=== PATIENT | female | born 1975 | race Caucasian/White ===

== ENCOUNTER 2018-04-07 14:12 | Inpatient (IN) | payer OTHER ==
[~2018-04-07 14:12] MED LIST: PIPERACILLIN/TAZOB 3.375 GM 3.375 GM in DEXTROSE 5%-WATER - 50 ML IVPB ONE
--- NOTE | 2018-04-07 14:49 | PDOC ---
Attending Attestation - Resident Resident Name: TitaPranav - HPI HPI: 04/09/18 09:40 Pt presents to the Ed complaining of fever, drainage from abdominal wounds and worsening swelling after abdominoplasty procedure performed in [place]. Pain and swelling has been worsening since her discharge from the hospital, but has become increasingly worse over the last two days. Also complaining of serosanguinous drainage from her wounds that has become so copious that she needed to use sanitary napkins to control the flow. Reports fever at home for the last two days. - Physicial Exam PE: 04/09/18 10:03 Agree with resident exam. Patinet has diffusely tender and swollen abdominal wall with crepitus. + two eschars on the R lateral abdominal wall. - Medical Decision Making 04/09/18 10:04 Pt presents to the ED complaining of severe pain and swelling and fever after abdominoplasty. Patient is febrile and has signs of extensive abdominal wall infection. Will start broad spectrum antibiotics and check CT abdomen to evaluate for abscess. Will admit for IV antibiotics and likely surgical intervention.
[2018-04-07] MEDS ORDERED: PIPERACILLIN/TAZOB 3.375 GM 3.375 GM in DEXTROSE 5%-WATER - 50 ML IVPB ONE (14:58)
[2018-04-07] MEDS ORDERED: VANCOMYCIN 1,000 MG in DEXTROSE 5%-WATER - 250 ML IVPB ONE (14:58)
[2018-04-07] MEDS ORDERED: SODIUM CHLORIDE 2,000 ML IV STA (14:59)
[2018-04-07] MEDS ORDERED: morphine CARPU-JECT 4 MG/1 ML DISP.SYRIN IVPUSH ONE (15:01)
[2018-04-07] MEDS ORDERED: morphine SULFATE 4 MG/ML VIAL ONE (15:18)
[2018-04-07] MEDS ORDERED: PIPERACILLIN/TAZOB 3.375 GM 3.375 GM/50 ML BAG IVPB ONE (15:18)
[2018-04-07] MEDS ORDERED: VANCOMYCIN 1 GRAM (PRE-DOCKED) 1,000 MG/250 ML BAG IVPB ONE (15:18)
[2018-04-07] MEDS ORDERED: ACETAMINOPHEN 1000 MG/100 ML VIAL (NON FORMULARY) IVPB ONE (15:29)
[2018-04-07] MEDS ORDERED: ACETAMINOPHEN INJECTION 100 ML IVPB ONE (15:31)
[2018-04-07 15:41] LABS: BASO % 0.4 % (0-2.0); EOS % 3.7 % (0-4.5); HEMATOCRIT 31.7 % (32.4-45.2); HEMOGLOBIN 10.1 GM/dL (10.7-15.3); LYMPH % 24.4 % (8-40); MCH 25.3 pg (25.7-33.7); MCHC 31.8 g/dl (32.0-36.0); MEAN CELL VOLUME 79.5 fl (80-96); MEAN PLT VOLUME 7.2 fl (7.5-11.1); MONO % 14.2 % (3.8-10.2); NEUT % 57.3 % (42.8-82.8); PLATELET COUNT 661 K/MM3 (134-434); RBC 3.99 M/mm3 (3.60-5.2); RDW 16.5 % (11.6-15.6); WHITE BLOOD COUNT 9.7 K/mm3 (4.0-10.0)
--- NOTE | 2018-04-07 15:45 | PDOC ---
History of Present Illness <Chao Soto - Last Filed: 04/07/18 21:17> - General History Source: Patient Exam Limitations: No Limitations - History of Present Illness Initial Comments: 04/07/18 15:26 Patient is a 42F with history of HTN and abdominoplasty (done in [place] on 03/11/18 ) here today complaining of fever, chills, wound discharge for the past two days. Patient reports taking paracetamol 1g three times a day for pain and fever. Endorses nausea, denies vomiting. Denies dysuria. Patient states that the pain has present since the operation, but the odorous discharge is two days old. <Pranav Rivers - Last Filed: 04/07/18 23:48> - General Chief Complaint: Wound Stated Complaint: POST OP, WOUND Time Seen by Provider: 04/07/18 14:39 Past History <Chao Soto - Last Filed: 04/07/18 21:17> - Past Medical History Anemia: No Asthma: No Cancer: No Cardiac Disorders: Yes (OR) CVA: No COPD: No Dementia: No Diabetes: No Dialysis: No GI Disorders: No Disorders: No HTN: Yes Hypercholesterolemia: No Kidney Stones: No Liver Disease: No Seizures: No Thyroid Disease: No - Surgical History Appendectomy: Yes (20 yrs) Cardiac Surgery: No Cholecystectomy: No Lung Surgery: No Neurologic Surgery: No - Immunization History Immunization Up to Date: Yes - Suicide/Smoking/Psychosocial Hx Smoking Status: No Smoking History: Never smoked Number of Cigarettes Smoked Daily: 0 Hx Alcohol Use: No Drug/Substance Use Hx: No Substance Use Type: None Hx Substance Use Treatment: No <Pranav Rivers - Last Filed: 04/07/18 23:48> - Past Medical History Allergies/Adverse Reactions: Allergies Allergy/AdvReac Type Severity Reaction Status Date / Time No Known Allergies Allergy Verified 04/07/18 14:28 Home Medications: Ambulatory Orders Labetalol HCl 100 mg PO BID 04/07/18 Review of Systems - Review of Systems Comments:: 04/07/18 15:49 GENERAL/CONSTITUTIONAL: +fever +chills. No weakness. HEAD, EYES, EARS, NOSE AND THROAT: No change in vision. No sore throat. CARDIOVASCULAR: No chest pain or shortness of breath RESPIRATORY: No cough, wheezing, or hemoptysis. GASTROINTESTINAL: +nausea, no vomiting, diarrhea or constipation. GENITOURINARY: No dysuria, frequency, or change in urination. MUSCULOSKELETAL: No joint or muscle swelling or pain. No neck or back pain. SKIN: No rash NEUROLOGIC: No headache, vertigo, loss of consciousness, or change in strength/ sensation. ENDOCRINE: No increased thirst. No abnormal weight change HEMATOLOGIC/LYMPHATIC: No anemia, easy bleeding, or history of blood clots. ALLERGIC/IMMUNOLOGIC: No hives or skin allergy. <Pranav Rivers - Last Filed: 04/07/18 23:48> *Physical Exam - Vital Signs Last Vital Signs Temp Pulse Resp BP Pulse Ox 101.7 F H 97 H 18 137/69 99 04/07/18 18:45 04/07/18 18:45 04/07/18 18:45 04/07/18 18:45 04/07/18 18:45 <Chao Soto - Last Filed: 04/07/18 21:17> - Vital Signs Last Vital Signs Temp Pulse Resp BP Pulse Ox 99.1 F 111 H 19 143/78 100 04/07/18 14:28 04/07/18 14:28 04/07/18 14:28 04/07/18 14:28 04/07/18 14:28 - Physical Exam Comments: 04/07/18 15:50 GENERAL: Awake, alert, and fully oriented, in no acute distress HEAD: No signs of trauma, normocephalic, atraumatic EYES: PERRLA, EOMI, sclera anicteric, conjunctiva clear ENT: Auricles normal inspection, hearing grossly normal, nares patent, oropharynx clear without exudates. Moist mucosa NECK: Normal ROM, supple, no lymphadenopathy, JVD, or masses LUNGS: No distress, speaks full sentences, clear to auscultation bilaterally HEART: Regular rate and rhythm, normal S1 and S2, no murmurs, rubs or gallops, peripheral pulses normal and equal bilaterally. ABDOMEN: Tense, crepitus, odorous discharge with skin breakdown, erythematous EXTREMITIES: Normal inspection, Normal range of motion, no edema. No clubbing or cyanosis. NEUROLOGICAL: Cranial nerves II through XII grossly intact. Normal speech, no focal sensorimotor deficits SKIN: Warm, Dry, normal turgor, no rashes or lesions noted. <Pranav Rivers - Last Filed: 04/07/18 23:48> ED Treatment Course - LABORATORY CBC & Chemistry Diagram: 04/07/18 15:10 04/07/18 15:10 - ADDITIONAL ORDERS Additional order review: Laboratory Results 04/07/18 04/07/18 04/07/18 15:45 15:10 15:10 PT with INR INR PTT (Actin FS) Sodium Potassium Chloride Carbon Dioxide Anion Gap BUN Creatinine Creat Clearance w eGFR Random Glucose Lactic Acid Calcium Total Bilirubin AST ALT Alkaline Phosphatase Troponin I < 0.02 Total Protein Albumin Serum , Qual Negative Urine Color Yellow Urine Appearance Clear Urine pH 6.0 Ur Specific [place] 1.018 Urine Protein Negative Urine Glucose (UA) Negative Urine Ketones Negative Urine Blood Negative Urine Nitrite Negative Urine Bilirubin Negative Urine Urobilinogen Negative Ur Leukocyte Esterase Trace Urine WBC (Auto) 3 Urine RBC (Auto) <1 Urine Mucus Rare 04/07/18 04/07/18 04/07/18 15:10 15:10 15:10 PT with INR 15.40 H INR 1.36 H PTT (Actin FS) 26.8 Sodium 136 Potassium 4.3 Chloride 101 Carbon Dioxide 29 Anion Gap 6 L BUN 10 Creatinine 0.6 Creat Clearance w eGFR > 60 Random Glucose 85 Lactic Acid 0.9 Calcium 8.9 Total Bilirubin 0.5 AST 18 ALT 29 Alkaline Phosphatase 102 Troponin I Total Protein 7.7 Albumin 3.3 L Serum , Qual Urine Color Urine Appearance Urine pH Ur Specific [place] Urine Protein Urine Glucose (UA) Urine Ketones Urine Blood Urine Nitrite Urine Bilirubin Urine Urobilinogen Ur Leukocyte Esterase Urine WBC (Auto) Urine RBC (Auto) Urine Mucus 04/07/18 15:10 RBC 3.99 MCV 79.5 L MCHC 31.8 L RDW 16.5 H MPV 7.2 L D Neutrophils % 57.3 Lymphocytes % 24.4 D Monocytes % 14.2 H D Eosinophils % 3.7 Basophils % 0.4 - Medications Given in the ED: ED Medications Discontinued Medications Generic Name Dose Route Start Last Admin Trade Name Freq PRN Reason Stop Dose Admin Acetaminophen 1,000 mg 04/07/18 15:29 04/07/18 15:40 Ofirmev Injection - IVPB 04/07/18 15:30 1,000 mg ONCE ONE Administration Vancomycin HCl 1,000 mg/ 250 mls @ 166.667 mls/hr 04/07/18 14:58 04/07/18 16: 27 Dextrose IVPB 04/07/18 16:27 166.667 mls/hr ONCE ONE Administration Protocol Piperacillin Sod/Tazobactam 50 mls @ 100 mls/hr 04/07/18 14:58 04/07/18 16:05 Sod 3.375 gm/ Dextrose IVPB 04/07/18 15:27 100 mls/hr ONCE ONE Administration Protocol Sodium Chloride 2,000 mls @ 1,000 mls/hr 04/07/18 14:59 04/07/18 15:45 Normal Saline - IV 04/07/18 16:58 1,000 mls/hr ASDIR STA Administration Clindamycin Phosphate 900 mg in 50 mls @ 100 mls/hr 04/07/18 19:29 04/07/18 20:42 Cleocin 900 Mg Premix Ivpb - IVPB 04/07/18 19:58 100 mls/hr ONCE ONE Administration Protocol Morphine Sulfate 4 mg 04/07/18 15:01 04/07/18 15:20 Morphine Injection - IVPUSH 04/07/18 15:02 4 mg ONCE ONE Administration <Chao Soto - Last Filed: 04/07/18 21:17> - LABORATORY CBC & Chemistry Diagram: 04/07/18 15:10 04/07/18 15:10 - RADIOLOGY Radiology Studies Ordered: Category Date Time Status ABDOMEN & PELVIS CT WITH CONTR [CT] Stat CT Scan 04/07/18 14:59 Ordered CHEST X-RAY PORTABLE* [RAD] Stat Radiology 04/07/18 14:56 Ordered <Pranav Rivers - Last Filed: 04/07/18 23:48> Medical Decision Making - Medical Decision Making 04/07/18 21:13 Dr. Kasper was called regarding the patient at 8:20pm and at 9:08pm [phone] Dr. Kasper was called regarding the patient at 9:18pm [phone] 04/07/18 21:17 <Chao Soto - Last Filed: 04/07/18 21:17> - Medical Decision Making 04/07/18 15:51 Patient is 42F with history of HTN here with post-op wound infection. Tachy to 111, febrile to 102. Last tylenol 9:30, given 1g at 15:30. Septic workup initiated. Will attempt to establish extent of infection. Cultures drawn, started on vanc/zosyn empirically. 04/07/18 17:03 Laboratory Tests 04/07/18 04/07/18 04/07/18 15:10 15:10 15:10 WBC 9.7 Hgb 10.1 L Plt Count 661 H D BUN 10 Creatinine 0.6 Troponin I < 0.02 Serum , Qual Urine Nitrite Ur Leukocyte Esterase Urine WBC (Auto) Urine RBC (Auto) 04/07/18 04/07/18 15:10 15:45 WBC Hgb Plt Count BUN Creatinine Troponin I Serum , Qual Negative Urine Nitrite Negative Ur Leukocyte Esterase Trace Urine WBC (Auto) 3 Urine RBC (Auto) <1 CBC normal. CMP reassuring. Troponin undetectable. Lactic acid negative. UA negative. negative. 04/07/18 19:21 CT shows: 1. Heterogeneous collection with extensive tiny foci of gas within located in the lower anterior wall subcutaneous fat. This could be postoperative, but is highly concerning for infection/abscess. 2. Subcutaneous gas with inflammatory changes within the anterior abdominal wall subcutaneous tissues above the above-mentioned abscess, but without focal drainable collection. Plastics paged, microblog out for admission. 04/07/18 23:48 Admitted to m/s. No call back from plastics despite multiple calls to home and office. <Pranav Rivers - Last Filed: 04/07/18 23:48> *DC/Admit/Observation/Transfer <Chao Soto - Last Filed: 04/07/18 21:17> - Discharge Dispostion Decision to Admit order: Yes <Pranav Rivers - Last Filed: 04/07/18 23:48> Diagnosis at time of Disposition: Sepsis, Wound infection - Discharge Dispostion Condition at time of disposition: Stable
[2018-04-07 15:53] LABS: INR 1.36 (0.83-1.09); PROTHROMBIN TIME (PATIENT) 15.4 SEC (9.7-13.0)
[2018-04-07 15:55] LABS: ACTIVATED PTT 26.8 SECONDS (25.2-36.5)
[2018-04-07 15:59] LABS: URINE APPEARANCE CLEAR; URINE BILIRUBIN NEGATIVE (<2.0 mg/dL); URINE COLOR YELLOW; URINE GLUCOSE (UA) NEGATIVE (NEGATIVE); URINE KETONE NEGATIVE (NEGATIVE); URINE LEUK ESTERASE TRACE (NEGATIVE); URINE NITRITE NEGATIVE (NEGATIVE); URINE PROTEIN NEGATIVE (NEGATIVE); URINE UROBILINOGEN NEGATIVE mg/dL (0.2-1.0)
[2018-04-07 16:03] LABS: ALBUMIN 3.3 g/dl (3.4-5.0); ANION GAP 6 MMOL/L (8-16); BLOOD UREA NITROGEN 10 mg/dL (7-18); CALCIUM 8.9 mg/dL (8.5-10.1); CHLORIDE 101 mmol/L (98-107); CO2 29 mmol/L (21-32); CREATININE 0.6 mg/dL (0.55-1.02); GLUCOSE,RANDOM 85 mg/dL (74-106); POTASSIUM 4.3 mmol/L (3.5-5.1); SGOT/AST 18 U/L (15-37); SGPT/ALT 29 U/L (12-78); SODIUM 136 mmol/L (136-145)
[2018-04-07 16:06] LABS: ALK PHOS 102 U/L (45-117); BILIRUBIN,TOTAL 0.5 mg/dL (0.2-1.0); TOT PROT 7.7 g/dl (6.4-8.2)
[2018-04-07 16:46] LABS: URINE MUCUS RARE
[2018-04-07] MEDS ORDERED: CLINDAMYCIN 900 MG PREMIX IVPB 900 MG/50 ML BAG IVPB ONE ×2 (19:29→20:38)
--- NOTE | 2018-04-07 20:05 | PN ---
Teaching Attending Note Name of Resident: Hyacinth Schuler ATTENDING PHYSICIAN STATEMENT I saw and evaluated the patient. I reviewed the resident's note and discussed the case with the resident. I agree with the resident's findings and plan as documented. SUBJECTIVE: Patient is a 42 year old woman with history of HTN, appendectomy and recent abdominoplasty (done in [place] on 03/11/18) presenting with fever, chills, wound discharge for the past two days. Patient reports taking paracetamol 1g three times a day for pain and fever. Has nausea, denies vomiting. Denies dysuria. Patient states that the pain has present since the operation, but the odorous discharge started two days ago. LMP was around March 25, 2018. CT shows - 1. Heterogeneous collection with extensive tiny foci of gas located within the lower anterior wall subcutaneous fat. 2. Subcutaneous gas with inflammatory changes within the anterior abdominal wall subcutaneous tissues. OBJECTIVE: Alert Vital Signs Period Temp Pulse Resp BP Sys/Grewal Pulse Ox Last 24 Hr 99.1 F-102.2 F 97-111 18-19 137-143/69-78 99-100 HEENT: No Jaundice, eye redness or discharge, PERRLA, EOMI. Normocephalic, atraumatic. External ears are normal and hearing is grossly intact. No nasal discharge. Neck: Supple, nontender. No palpable adenopathy or thyromegaly. No JVD Chest: Good effort. Clear to auscultation and percussion. Heart: Regular. No S3, rub or murmur Abdomen: Infected surgical wound with crepitus, foul smelling discharge with skin breakdown; no HSM. No rebound or guarding. Normoactive bowel sounds. Ext: Peripheral pulses intact. No leg edema. Skin: Warm and dry. No petechiae, rash or ecchymosis. Neuro: Alert. Oriented x3. CN 2-12 grossly intact. Sensation grossly intact in all four extremities and DTR are symmetric. Home Medications Medication Instructions Recorded Labetalol HCl 100 mg PO DAILY 04/07/18 Abnormal Lab Results 04/07/18 04/07/18 04/07/18 15:10 15:10 15:10 Hgb 10.1 L Hct 31.7 L MCV 79.5 L MCH 25.3 L MCHC 31.8 L RDW 16.5 H Plt Count 661 H D MPV 7.2 L D Monocytes % 14.2 H D PT with INR 15.40 H INR 1.36 H Anion Gap 6 L Albumin 3.3 L ASSESSMENT AND PLAN: 1. Post-Op wound infection - Wound cultures done. Being treated with IV vancomycin and zosyn. Gas seen in the wound may be due to recently removed drain. Thrombocytosis likely a reaction to infection and possibly iron deficiency. Plastic surgery and ID consults. 2. Anemia - Likely multifactorial including operative blood loss and inflammation. Says she got 3 units of PRBC post surgery. Will do basic anemia work up including serial stool guaiacs, reticulocyte count and iron studies. 3. Obesity - Will provide patient all the necessary assistance, counseling and positive reinforcement to facilitate weight loss. Consult field staff. 4. DVT prophylaxis - Lovenox 40 mg SQ q 12 hours. 5. Advance directives - Full code
--- NOTE | 2018-04-07 21:49 | HP ---
CHIEF COMPLAINT: Post-Op Wound with drainage PCP: Dr. Akash Chung HISTORY OF PRESENT ILLNESS: 42 y/o F, accompanied by her daughter, with PMHx of HTN s/p Liposuction and Tummy tuck preformed in [place] on 03/11/18 presents with purulent discharge from her wound site. Post-Op, she was treated with a course of Augmentin and IV Ceftriaxone x [address] drain was place that was removed on 03/25, right before her return flight to the [facility]. On 03/26, her stitches, specifically at the umbilicus, were torn open. She spoke with her surgeon in [place] who suggested she continue to use an abdominal compression garment and continue to change her dressing. She noticed fluid drainage from the site since the stitches were opened however over the past 2-3 days, it has become malodorous now and accompanied by subjective fevers. She additionally notes gas leaking from the wound site around the same time. She says the fluid is pink-orange and malodorous, and the drainage increases with movement. She has notes she needs to change the abdominal dressing every hour if she is moving. She additionally complains of Numbness and swelling in her abdomen along side chills, Nausea, cold sweat, NBNB Vomiting x1 this am and cough. She feels like she "Has been hit by a truck since the surgery." She has been able to tolerate diet, noting that her last meal was earlier today. Of note, Her LMP ended on 03/24. ER course was notable for: (1) Tylenol, NS Bolus x2, Morphine (2) Vanco, Zosyn, Clinda (3) Blood, Urine Cx Recent Travel: [place], Returned on 03/25 PAST MEDICAL HISTORY: HTN PAST SURGICAL HISTORY: Liposuction + Tummy tuck (on 03/11/18) Benign breast mass removal (14 years ago) Appendectomy (20+ Years ago) Tonsilectomy (Childhood) Social History: Smoking: Socially, Hookah once every 2-3 months Alcohol: Denies Drugs: Denies Occupation: Transportation Director (9 years) Residence: Family home with her 2 children, no pets Ambulates: On her own Family History: Dad: (from old age) Mom: Alive, HTN, Ovarian ca s/p surgery Brother: during childhood from bone marrow cancer (Doesnt know which type) Allergies No Known Allergies Allergy (Verified 04/07/18 14:28) HOME MEDICATIONS: Home Medications Medication Instructions Recorded Labetalol HCl 100 mg PO DAILY 04/07/18 REVIEW OF SYSTEMS CONSTITUTIONAL: Present: fever, chills, Absent: diaphoresis, generalized weakness, malaise, loss of appetite, weight change HEENT: Absent: rhinorrhea, nasal congestion, throat pain, throat swelling, difficulty swallowing, mouth swelling, ear pain, eye pain, visual changes CARDIOVASCULAR: Absent: chest pain, syncope, palpitations, irregular heart rate, lightheadedness , peripheral edema RESPIRATORY: Present: cough, Absent: shortness of breath, dyspnea with exertion, orthopnea, wheezing, stridor , hemoptysis GASTROINTESTINAL: Present: abdominal pain, nausea, vomiting, Absent: abdominal distension, diarrhea, constipation, melena, hematochezia GENITOURINARY: Absent: dysuria, frequency, urgency, hesitancy, hematuria, flank pain, genital pain MUSCULOSKELETAL: Absent: myalgia, arthralgia, joint swelling, back pain, neck pain SKIN: Absent: rash, itching, pallor HEMATOLOGIC/IMMUNOLOGIC: Absent: easy bleeding, easy bruising, lymphadenopathy, frequent infections ENDOCRINE: Absent: unexplained weight gain, unexplained weight loss, heat intolerance, cold intolerance NEUROLOGIC: Absent: headache, focal weakness or paresthesias, dizziness, unsteady gait, seizure, mental status changes, bladder or bowel incontinence PSYCHIATRIC: Absent: anxiety, depression, suicidal or homicidal ideation, hallucinations. PHYSICAL EXAMINATION Vital Signs - 24 hr 04/07/18 04/07/18 04/07/18 14:28 15:25 16:00 Temperature 99.1 F 102.2 F H 102.2 F H Pulse Rate 111 H Pulse Rate [ Right] Respiratory 19 Rate Blood Pressure 143/78 Blood Pressure [Right Arm] O2 Sat by Pulse 100 Oximetry (%) 04/07/18 18:45 Temperature 101.7 F H Pulse Rate Pulse Rate [ 97 H Right] Respiratory 18 Rate Blood Pressure Blood Pressure 137/69 [Right Arm] O2 Sat by Pulse 99 Oximetry (%) GENERAL: Awake, alert, and fully oriented, in no acute distress. HEAD: NCAT EYES: PERRL, EOMI THROAT: Oropharynx clear without exudates. Moist mucous membranes. NECK: No JVD LUNGS: Breath sounds equal, clear to auscultation bilaterally. No wheezes, and no crackles. HEART: Regular rate and rhythm, normal S1 and S2 without murmur. ABDOMEN: Obese, Tender to palpation in the lower abdomen specifically around the wound sites, not distended, normoactive bowel sounds, no guarding, no rebound MUSCULOSKELETAL: No CVA tenderness EXTREMITIES: 2+ pulses, No calf tenderness. No peripheral edema. SKIN: 2 abdominal wound sites present - 2x2 cm umbilical wound site with active malodorous, purulent discharge. 3x3cm RLQ Wound site with dried purulent discharge. Areas surrounding both sites are tender to palpation and stiff. Laboratory Results - last 24 hr 04/07/18 04/07/18 04/07/18 15:10 15:10 15:10 WBC 9.7 RBC 3.99 Hgb 10.1 L Hct 31.7 L MCV 79.5 L MCH 25.3 L MCHC 31.8 L RDW 16.5 H Plt Count 661 H D MPV 7.2 L D Absolute Neuts (auto) 5.6 Neutrophils % 57.3 Lymphocytes % 24.4 D Monocytes % 14.2 H D Eosinophils % 3.7 Basophils % 0.4 Nucleated RBC % 0 PT with INR 15.40 H INR 1.36 H PTT (Actin FS) 26.8 Sodium 136 Potassium 4.3 Chloride 101 Carbon Dioxide 29 Anion Gap 6 L BUN 10 Creatinine 0.6 Creat Clearance w eGFR > 60 Random Glucose 85 Lactic Acid Calcium 8.9 Total Bilirubin 0.5 AST 18 ALT 29 Alkaline Phosphatase 102 Troponin I Total Protein 7.7 Albumin 3.3 L Serum , Qual Urine Color Urine Appearance Urine pH Ur Specific [place] Urine Protein Urine Glucose (UA) Urine Ketones Urine Blood Urine Nitrite Urine Bilirubin Urine Urobilinogen Ur Leukocyte Esterase Urine WBC (Auto) Urine RBC (Auto) Urine Mucus 04/07/18 04/07/18 04/07/18 15:10 15:10 15:10 WBC RBC Hgb Hct MCV MCH MCHC RDW Plt Count MPV Absolute Neuts (auto) Neutrophils % Lymphocytes % Monocytes % Eosinophils % Basophils % Nucleated RBC % PT with INR INR PTT (Actin FS) Sodium Potassium Chloride Carbon Dioxide Anion Gap BUN Creatinine Creat Clearance w eGFR Random Glucose Lactic Acid 0.9 Calcium Total Bilirubin AST ALT Alkaline Phosphatase Troponin I < 0.02 Total Protein Albumin Serum , Qual Negative Urine Color Urine Appearance Urine pH Ur Specific [place] Urine Protein Urine Glucose (UA) Urine Ketones Urine Blood Urine Nitrite Urine Bilirubin Urine Urobilinogen Ur Leukocyte Esterase Urine WBC (Auto) Urine RBC (Auto) Urine Mucus 04/07/18 15:45 WBC RBC Hgb Hct MCV MCH MCHC RDW Plt Count MPV Absolute Neuts (auto) Neutrophils % Lymphocytes % Monocytes % Eosinophils % Basophils % Nucleated RBC % PT with INR INR PTT (Actin FS) Sodium Potassium Chloride Carbon Dioxide Anion Gap BUN Creatinine Creat Clearance w eGFR Random Glucose Lactic Acid Calcium Total Bilirubin AST ALT Alkaline Phosphatase Troponin I Total Protein Albumin Serum , Qual Urine Color Yellow Urine Appearance Clear Urine pH 6.0 Ur Specific [place] 1.018 Urine Protein Negative Urine Glucose (UA) Negative Urine Ketones Negative Urine Blood Negative Urine Nitrite Negative Urine Bilirubin Negative Urine Urobilinogen Negative Ur Leukocyte Esterase Trace Urine WBC (Auto) 3 Urine RBC (Auto) <1 Urine Mucus Rare ASSESSMENT/PLAN: 42 y/o F s/p Liposuction and Tummy tuck preformed in [place] on 03/11/18 presents with purulent discharge from her wound site accompanied by Fevers will be admitted to Med-Surg 1. Sepsis - likely due to Post-Op Wound site infection - Temp 101.7, HR 97 - Has already completed a course of Augmentin and Ceftriaxone, as per patient - Given Zosyn/Vanco/Clinda, 2L NS, Tylenol in the ED - CT A/P and CXR pending official read - Blood/Urine/Wound cultures pending - ID (Dr. De Paz) Consulted - Plastic surgery (Dr. Kasper) Consulted - Continue Zosyn 3.375 q6H, Vanco 1g q12H - NS 1L @ 75 mls/hr 2. Microcytic Anemia - FOBT, Reticulocyte count, FE, TIBC, Ferritin ordered 3. HTN - Continue Home dose Labatelol 100mg (Meds Reconciled) 4. FEN - NS 1L @ 75 mls/hr - Lytes Wnl - NPO pending surgical evaluation 5. PPx - DVT: Lovenox 40 mg BID Dispo: Admit to [facility] Visit type - Emergency Visit Emergency Visit: Yes ED Registration Date: 04/07/18 Care time: The patient presented to the Emergency Department on the above date and was hospitalized for further evaluation of their emergent condition. - New Patient This patient is new to me today: Yes Date on this admission: 04/08/18 - Critical Care Critical Care patient: No Hospitalist Screening - Colonoscopy Questionnaire Colonoscopy Questionnaire: Colonoscopy Questionnaire - Patient: 50 - 75 years old and never had a screening colonoscopy: Unknown History of colon or rectal polyps, or CA: Unknown History of IBD, Crohn's disease or UC: Unknown History of abdominal radiation therapy as a child: Unknown - Relative: 1 with colon or rectal CA, or polyps at age 60 or younger: Unknown Colon or rectal CA diagnosed at age 45 or younger: Unknown Multiple relatives with colon or rectal CA: Unknown - Outcome: Screening Result: Negative Screen
[2018-04-07] MEDS ORDERED: ACETAMINOPHEN 325 MG TABLET (FP) PO PRN (22:23)
[2018-04-07] MEDS ORDERED: SODIUM CHLORIDE 1,000 ML IV SCH ×2 (22:30)
[2018-04-07] MEDS ORDERED: PIPERACILLIN/TAZOBACTAM 3.375 GM VIAL IVPB ONE (22:39)
[2018-04-07] MEDS ORDERED: DEXTROSE 5%-WATER - 50 ML IVPB ONE (22:39)
[2018-04-07] MEDS ORDERED: PT OWN MED DRAWER 7, Y5N ONE (22:48)
[2018-04-07] MEDS: ENOXAPARIN NA (PORCINE) 40 MG/0.4 ML DISP.SYRIN SQ SCH (23:29)
[2018-04-07] MEDS: PIPERACILLIN/TAZOB 3.375 GM 3.375 GM in DEXTROSE 5%-WATER - 50 ML IVPB SCH (23:31)
[2018-04-08] MEDS ORDERED: PIPERACILLIN/TAZOBACTAM 3.375 GM VIAL IVPB ONE ×2 (02:07→08:12)
[2018-04-08] MEDS ORDERED: DEXTROSE 5%-WATER - 50 ML IVPB ONE ×2 (02:07→08:12)
[2018-04-08] MEDS ORDERED: ACETAMINOPHEN 1000 MG/100 ML VIAL (NON FORMULARY) IVPB ONE ×2 (02:17→08:30)
[2018-04-08] MEDS ORDERED: VANCOMYCIN 1,000 MG in DEXTROSE 5%-WATER - 250 ML IVPB SCH (04:30)
[2018-04-08] MEDS ORDERED: VANCOMYCIN 1 GM PREMIX - 1 GM/200 ML BAG IVPB ONE (04:30)
[2018-04-08] MEDS: PIPERACILLIN/TAZOB 3.375 GM 3.375 GM in DEXTROSE 5%-WATER - 50 ML IVPB SCH ×3 (07:23→11:40)
[2018-04-08 07:28] LABS: BASO % 0.6 % (0-2.0); EOS % 2.4 % (0-4.5); HEMATOCRIT 27.3 % (32.4-45.2); HEMOGLOBIN 8.5 GM/dL (10.7-15.3); LYMPH % 40.3 % (8-40); MCH 25.3 pg (25.7-33.7); MCHC 31.3 g/dl (32.0-36.0); MEAN CELL VOLUME 80.9 fl (80-96); MEAN PLT VOLUME 7.1 fl (7.5-11.1); MONO % 15.1 % (3.8-10.2); NEUT % 41.6 % (42.8-82.8); PLATELET COUNT 526 K/MM3 (134-434); RBC 3.37 M/mm3 (3.60-5.2); RDW 16.2 % (11.6-15.6); WHITE BLOOD COUNT 9.1 K/mm3 (4.0-10.0)
[2018-04-08 08:03] LABS: CHLORIDE 106 mmol/L (98-107); POTASSIUM 3.8 mmol/L (3.5-5.1); SODIUM 141 mmol/L (136-145)
[2018-04-08] MEDS ORDERED: VANCOMYCIN 1,000 MG in DEXTROSE 5%-WATER - 250 ML IVPB ONE (08:22)
[2018-04-08 08:27] LABS: ALBUMIN 2.5 g/dl (3.4-5.0); ALK PHOS 74 U/L (45-117); ANION GAP 11 MMOL/L (8-16); BILIRUBIN,TOTAL 0.6 mg/dL (0.2-1.0); BLOOD UREA NITROGEN 6 mg/dL (7-18); CALCIUM 7.7 mg/dL (8.5-10.1); CO2 24 mmol/L (21-32); CREATININE 0.4 mg/dL (0.55-1.02); GLUCOSE,RANDOM 111 mg/dL (74-106); PHOSPHOROUS 3.5 mg/dL (2.5-4.9); SGOT/AST 13 U/L (15-37); SGPT/ALT 22 U/L (12-78)
[2018-04-08] MEDS ORDERED: ACETAMINOPHEN 1000 MG/100 ML VIAL (NON FORMULARY) IVPB PRN (10:58)
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
[2018-04-08] MEDS: LABETALOL HCL 100 MG TABLET (FP) PO SCH ×2 (11:40→21:40)
--- NOTE | 2018-04-08 13:23 | EKG ---
Test Reason : Blood Pressure : / mmHG Vent. Rate : 106 BPM Atrial Rate : 106 BPM P-R Int : 130 ms QRS Dur : 078 ms QT Int : 316 ms P-R-T Axes : 032 049 040 degrees QTc Int : 419 ms SINUS TACHYCARDIA OTHERWISE NORMAL ECG WHEN COMPARED WITH ECG OF 21-OCT-2011 04:07, VENT. RATE HAS INCREASED BY 39 BPM Confirmed by JUAN COLLINS MD ([id number]) on 04/08/2018 1:22:56 PM Referred By: Confirmed By:JUAN COLLINS MD
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
[2018-04-08] MEDS: ENOXAPARIN NA (PORCINE) 40 MG/0.4 ML DISP.SYRIN SQ SCH (15:18)
[2018-04-08] MEDS ORDERED: PT OWN MED DRAWER 7, Y5N ONE ×2 (15:37→21:07)
[2018-04-08 15:43] VITALS: BMI 43.5
[2018-04-08] MEDS: ZINC SULFATE 220 MG CAPSULE (FP) PO SCH (15:53)
[2018-04-08] MEDS ORDERED: PIPERACILLIN/TAZOBACTAM 4.5 GM VIAL IVPB ONE (16:44)
[2018-04-08] MEDS ORDERED: DEXTROSE 5%-WATER 100 ML IVPB ONE (16:44)
[2018-04-08] MEDS: SILVER SULFADIAZINE 1% TOP CREAM 50 GM JAR TP SCH ×2 (17:00→21:40)
[2018-04-08] MEDS: PIPERACILLIN/TAZOB 4.5 GM 4.5 GM in DEXTROSE 5%-WATER 100 ML IVPB SCH (17:05)
[2018-04-08] MEDS: VANCOMYCIN 1,250 MG in DEXTROSE 5%-WATER - 250 ML IVPB SCH (17:47)
[2018-04-08] MEDS: ASCORBIC ACID 250 MG TABLET (FP) PO SCH (21:40)
[2018-04-09] MEDS ORDERED: METOCLOPRAMIDE HCL INJECTION 10 MG/2 ML VIAL IVPUSH ONE (01:15)
[2018-04-09] MEDS: PIPERACILLIN/TAZOB 4.5 GM 4.5 GM in DEXTROSE 5%-WATER 100 ML IVPB SCH ×3 (02:17→17:37)
[2018-04-09] MEDS ORDERED: DEXTROSE 5%-WATER 100 ML IVPB ONE ×3 (03:46→16:22)
[2018-04-09] MEDS ORDERED: PIPERACILLIN/TAZOBACTAM 4.5 GM VIAL IVPB ONE ×3 (03:46→16:22)
[2018-04-09] MEDS: VANCOMYCIN 1,250 MG in DEXTROSE 5%-WATER - 250 ML IVPB SCH ×2 (04:06→15:41)
[2018-04-09 06:08] LABS: SERUM IRON SATURATION 4 % (15-55); TOTAL IRON BINDING CAPACITY 264 ug/dL (250-450); UIBC 254 ug/dL (131-425)
[2018-04-09 07:27] LABS: BASO % 0.4 % (0-2.0); EOS % 3.3 % (0-4.5); HEMATOCRIT 25.4 % (32.4-45.2); HEMOGLOBIN 8.1 GM/dL (10.7-15.3); LYMPH % 37.6 % (8-40); MCH 25.3 pg (25.7-33.7); MEAN PLT VOLUME 7.1 fl (7.5-11.1); MONO % 14.6 % (3.8-10.2); NEUT % 44.1 % (42.8-82.8); PLATELET COUNT 528 K/MM3 (134-434); RBC 3.22 M/mm3 (3.60-5.2); RDW 16.3 % (11.6-15.6); WHITE BLOOD COUNT 8.5 K/mm3 (4.0-10.0)
[2018-04-09 07:51] LABS: CHLORIDE 105 mmol/L (98-107); POTASSIUM 3.9 mmol/L (3.5-5.1); SODIUM 141 mmol/L (136-145)
[2018-04-09 08:08] LABS: ALBUMIN 2.4 g/dl (3.4-5.0); ALK PHOS 72 U/L (45-117); ANION GAP 9 MMOL/L (8-16); BILIRUBIN,TOTAL 0.5 mg/dL (0.2-1.0); BLOOD UREA NITROGEN 5 mg/dL (7-18); CALCIUM 7.9 mg/dL (8.5-10.1); CO2 27 mmol/L (21-32); CREATININE 0.6 mg/dL (0.55-1.02); GLUCOSE,RANDOM 110 mg/dL (74-106); SGOT/AST 14 U/L (15-37); SGPT/ALT 22 U/L (12-78); TOT PROT 6.1 g/dl (6.4-8.2)
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
[2018-04-09] MEDS ORDERED: PT OWN MED DRAWER 7, Y5N ONE (09:26)
[2018-04-09] MEDS: ASCORBIC ACID 250 MG TABLET (FP) PO SCH ×2 (09:57→21:36)
[2018-04-09] MEDS: LABETALOL HCL 100 MG TABLET (FP) PO SCH ×3 (09:57→21:25)
[2018-04-09] MEDS: ZINC SULFATE 220 MG CAPSULE (FP) PO SCH (09:57)
[2018-04-09] MEDS: SILVER SULFADIAZINE 1% TOP CREAM 50 GM JAR TP SCH ×2 (09:58→21:27)
[2018-04-09] MEDS ORDERED: ACETAMINOPHEN 1000 MG/100 ML VIAL (NON FORMULARY) IVPB ONE (13:09)
[2018-04-09] MEDS ORDERED: SODIUM CHLORIDE 1,000 ML IV SCH (13:15)
[2018-04-09] MEDS ORDERED: SODIUM CHLORIDE 0.45% 1,000 ML IV ONE (13:28)
[2018-04-09] MEDS ORDERED: METOCLOPRAMIDE HCL 10 MG TABLET (FP) PO ONE (13:35)
--- NOTE | 2018-04-09 16:26 | PN ---
Teaching Attending Note Name of Resident: Stan Rodriguez ATTENDING PHYSICIAN STATEMENT I saw and evaluated the patient. I reviewed the resident's note and discussed the case with the resident. I agree with the resident's findings and plan as documented. SUBJECTIVE: Patient is feeling better, c/o having low back pain. OBJECTIVE: Vital Signs Temperature 99.5 F 04/09/18 15:07 Pulse Rate 104 H 04/09/18 15:07 Respiratory Rate 18 04/09/18 15:07 Blood Pressure 131/81 04/09/18 15:07 O2 Sat by Pulse Oximetry (%) 95 04/09/18 10:00 CBCD WBC 8.5 K/mm3 (4.0-10.0) 04/09/18 06:30 RBC 3.22 M/mm3 (3.60-5.2) L 04/09/18 06:30 Hgb 8.1 GM/dL (10.7-15.3) L 04/09/18 06:30 Hct 25.4 % (32.4-45.2) L 04/09/18 06:30 MCV 79.0 fl (80-96) L 04/09/18 06:30 MCHC 32.0 g/dl (32.0-36.0) 04/09/18 06:30 RDW 16.3 % (11.6-15.6) H 04/09/18 06:30 Plt Count 528 K/MM3 (134-434) H 04/09/18 06:30 MPV 7.1 fl (7.5-11.1) L 04/09/18 06:30 CMP Sodium 141 mmol/L (136-145) 04/09/18 06:30 Potassium 3.9 mmol/L (3.5-5.1) 04/09/18 06:30 Chloride 105 mmol/L (98-107) 04/09/18 06:30 Carbon Dioxide 27 mmol/L (21-32) 04/09/18 06:30 Anion Gap 9 MMOL/L (8-16) 04/09/18 06:30 BUN 5 mg/dL (7-18) L 04/09/18 06:30 Creatinine 0.6 mg/dL (0.55-1.02) 04/09/18 06:30 Creat Clearance w eGFR > 60 (>60) 04/09/18 06:30 Random Glucose 110 mg/dL (74-106) H 04/09/18 06:30 Calcium 7.9 mg/dL (8.5-10.1) L 04/09/18 06:30 Total Bilirubin 0.5 mg/dL (0.2-1.0) 04/09/18 06:30 AST 14 U/L (15-37) L 04/09/18 06:30 ALT 22 U/L (12-78) 04/09/18 06:30 Alkaline Phosphatase 72 U/L (45-117) 04/09/18 06:30 Total Protein 6.1 g/dl (6.4-8.2) L 04/09/18 06:30 Albumin 2.4 g/dl (3.4-5.0) L 04/09/18 06:30 CARDIAC ENZYMES Troponin I < 0.02 ng/ml (0.00-0.05) 04/07/18 15:10 Current Medications Generic Name Dose Route Start Last Admin Trade Name Porfirioq PRN Reason Stop Dose Admin Acetaminophen 650 mg 04/09/18 07:45 Tylenol - PO Q6H PRN FEVER Ascorbic Acid 250 mg 04/08/18 22:00 04/09/18 09:57 Vitamin C - PO 250 mg BID FLORES Administration Vancomycin HCl 1,250 mg/ 250 mls @ 166.667 mls/hr 04/08/18 16:00 04/09/18 15: 41 Dextrose IVPB 166.667 mls/hr Q12H FLORES Administration Protocol Piperacillin Sod/Tazobactam 100 mls @ 200 mls/hr 04/08/18 18:00 04/09/18 09: 56 Sod 4.5 gm/ Dextrose IVPB 200 mls/hr Q8H-IV FLORES Administration Protocol Sodium Chloride 1,000 mls @ 100 mls/hr 04/09/18 13:28 04/09/18 14:08 1/2 Normal Saline IV 04/09/18 23:27 100 mls/hr ONCE ONE Administration Labetalol HCl 100 mg 04/08/18 10:00 04/09/18 10:00 Normodyne - PO Not Given BID FLORES Silver Sulfadiazine 1 applic 04/08/18 22:00 04/09/18 09:58 Silvadene - TP 1 applic BID FLORES Administration Zinc Sulfate 220 mg 04/08/18 14:45 04/09/18 09:57 Orazinc - PO 220 mg DAILY FLORES Administration Home Medications Medication Instructions Recorded Labetalol HCl 100 mg PO BID 04/07/18 Microbiology 04/07/18 15:10 Blood - Peripheral Venous Blood Culture - Preliminary= MANY GRAM NEGATIVE BACILLI NO GROWTH OBTAINED AFTER 48 HOURS, INCUBATION TO CONTINUE FOR 3 DAYS. 04/07/18 15:10 Blood - Peripheral Venous Blood Culture - Preliminary NO GROWTH OBTAINED AFTER 48 HOURS, INCUBATION TO CONTINUE FOR 3 DAYS. 04/07/18 20:30 Wound Gram Stain - Final 04/07/18 20:30 Wound Wound Culture - Preliminary NO GROWTH OBTAINED AFTER 24 HOURS INCUBATION, REINCUBATED. 04/07/18 15:45 Urine - Urine Clean Catch Urine Culture - Final PE: CVS: Mild tachycardia s/p I&D by Plastic; still draining the abscess Burned Lesion on her abdomen due to her applying heating pad rest of PE per resident's note Selected Entries 04/07/18 04/08/18 04/08/18 21:00 01:11 02:05 Temperature 102.1 F H Pulse Rate 106 H 109 H 04/08/18 06:00 Temperature 98.1 F Pulse Rate 88 Laboratory Tests 04/07/18 04/09/18 15:10 06:30 Lactic Acid 0.9 Total Protein 6.1 L Albumin 2.4 L Vitamin B12 596 Serum Folate 32 H Selected Entries 04/07/18 04/08/18 04/08/18 21:00 01:11 02:05 Temperature 102.1 F H Pulse Rate 106 H 109 H 04/08/18 06:00 Temperature 98.1 F Pulse Rate 88 Laboratory Tests 04/07/18 04/08/18 04/09/18 15:10 06:30 06:30 Lactic Acid 0.9 Iron 10 L TIBC 264 Iron Saturation 4 L Total Protein 6.1 L Albumin 2.4 L Vitamin B12 596 Serum Folate [address] of abdomen: Sequential axial images were obtained from the domes of the diaphragms through the symphysis pubis following the administration of intravenous contrast material. 1. Edematous changes throughout the anterior abdominal wall with a suspected abscess within the lower anterior abdominal wall. There is additional smaller area of air and fluid within the mid anterior abdominal wall that appears to have an opening to the skin. there is an air and fluid collection which measures approximately 13.2 x 3.8 x 5.3 cm. This is suspicious for an abscess. 2. No additional evidence of acute pathology within the abdomen or pelvis. Please see above discussion. Reported By: Tank Sanchez MD 04/08/18 1008 ASSESSMENT AND PLAN: Patient is a 42 y/o Female with PMHx of HTN,OBesity s/p Liposuction and Tummy tuck preformed in [place] on 03/11/18 presents with purulent discharge from her her umbilical area Presented with fever of 102.1 # Sepsis due to her recent abdominal liposuction and Tummy tuch sx : Wound culture is pending, s/p Excisional debridement at bed side necrotic Umbilicus by , Iodoform gauze packing , VAC Therapy. supplements to replace Iron , Zinc , multivitamins, Vit C # Burned Lesion on her abdomen due to her applying heating pad: Blood/Urine/ Wound cultures pending, ID (Dr. De Paz) appreciated Plastic surgery (Dr. Kasper who is out of town) Consulted and discussed with , seeing the patient on consult, appreciated. Continue Zosyn 3.375 q6H, Vanco 1g q12H, NS 1L @ 100 mls/hr, on Regular diet now. # Microcytic Anemia: w/u positive for Iron deficiency will start her on iron supplements with colace # HTN Continue Home Labatelol 100mg Regular Diet ordered . DVt Px: Heparin sq
[2018-04-09] MEDS: FERROUS SO4 325 MG TABLET (FP) PO SCH (21:25)
[2018-04-09] MEDS: DOCUSATE SODIUM 100 MG CAPSULE (FP) PO SCH (21:26)
[2018-04-09] MEDS: ASCORBIC ACID 500 MG TABLET (FP) PO SCH (22:04)
[2018-04-10] MEDS ORDERED: PIPERACILLIN/TAZOBACTAM 4.5 GM VIAL IVPB ONE ×2 (00:35→09:21)
[2018-04-10] MEDS ORDERED: DEXTROSE 5%-WATER 100 ML IVPB ONE ×2 (00:35→09:21)
[2018-04-10] MEDS: PIPERACILLIN/TAZOB 4.5 GM 4.5 GM in DEXTROSE 5%-WATER 100 ML IVPB SCH ×2 (02:10→09:46)
[2018-04-10] MEDS: VANCOMYCIN 1,250 MG in DEXTROSE 5%-WATER - 250 ML IVPB SCH ×2 (03:50→17:51)
[2018-04-10 07:40] LABS: CHLORIDE 107 mmol/L (98-107); POTASSIUM 3.9 mmol/L (3.5-5.1); SODIUM 141 mmol/L (136-145)
[2018-04-10 07:45] LABS: BASO % 0.5 % (0-2.0); EOS % 6.5 % (0-4.5); HEMATOCRIT 25.8 % (32.4-45.2); HEMOGLOBIN 8.2 GM/dL (10.7-15.3); LYMPH % 30.8 % (8-40); MCH 24.9 pg (25.7-33.7); MCHC 31.9 g/dl (32.0-36.0); MEAN CELL VOLUME 78.3 fl (80-96); MEAN PLT VOLUME 7.3 fl (7.5-11.1); MONO % 14.9 % (3.8-10.2); NEUT % 47.3 % (42.8-82.8); PLATELET COUNT 564 K/MM3 (134-434); RBC 3.29 M/mm3 (3.60-5.2); RDW 16.8 % (11.6-15.6); WHITE BLOOD COUNT 8.7 K/mm3 (4.0-10.0)
[2018-04-10 07:50] LABS: ALBUMIN 2.5 g/dl (3.4-5.0); ALK PHOS 65 U/L (45-117); ANION GAP 13 MMOL/L (8-16); BILIRUBIN,TOTAL 0.5 mg/dL (0.2-1.0); BLOOD UREA NITROGEN 9 mg/dL (7-18); CALCIUM 8.3 mg/dL (8.5-10.1); CO2 21 mmol/L (21-32); GLUCOSE,RANDOM 111 mg/dL (74-106); SGOT/AST 19 U/L (15-37); SGPT/ALT 20 U/L (12-78)
[2018-04-10] MEDS: LABETALOL HCL 100 MG TABLET (FP) PO SCH ×3 (09:46→22:20)
[2018-04-10] MEDS: DOCUSATE SODIUM 100 MG CAPSULE (FP) PO SCH ×2 (09:47→22:24)
[2018-04-10] MEDS: FERROUS SO4 325 MG TABLET (FP) PO SCH ×2 (09:47→22:23)
[2018-04-10] MEDS: ZINC SULFATE 220 MG CAPSULE (FP) PO SCH (09:47)
[2018-04-10] MEDS: ASCORBIC ACID 500 MG TABLET (FP) PO SCH ×2 (09:48→22:23)
[2018-04-10] MEDS: SILVER SULFADIAZINE 1% TOP CREAM 50 GM JAR TP SCH ×2 (09:49→22:24)
[2018-04-10] MEDS: SODIUM CHLORIDE 1,000 ML IV SCH (11:30)
[2018-04-10 12:40] LABS: URINE CREATININE 77.5 mg/dL (20-320)
[2018-04-10 12:42] LABS: URINE APPEARANCE CLEAR; URINE BILIRUBIN NEGATIVE (<2.0 mg/dL); URINE COLOR STRAW; URINE GLUCOSE (UA) NEGATIVE (NEGATIVE); URINE KETONE NEGATIVE (NEGATIVE); URINE LEUK ESTERASE NEGATIVE (NEGATIVE); URINE NITRITE NEGATIVE (NEGATIVE); URINE PROTEIN NEGATIVE (NEGATIVE); URINE UROBILINOGEN NEGATIVE mg/dL (0.2-1.0)
[2018-04-10 12:43] LABS: RATIO URIN PROTEIN/URIN CREAT 0.2 MG/DL
--- NOTE | 2018-04-10 13:59 | PN ---
Progress Note (short form) - Note Progress Note: FU Lower abdomen wound post Abdominoplasty Liposuction Afebrile Pain has decreased Drainage still heavy purulent in Nature Umbilicus wound edges mild erythema, necrotic tissue clean Abdominal wound still over 5cm tunnel at 5 O'clock 6 o'clock over 4.5cm Ambulating well, no calf tenderness Drainage odor has decreased Labs Selected Entries 04/10/18 13:15 Temperature 98.6 F Pulse Rate 88 Blood Pressure 116/53 Laboratory Tests 04/10/18 04/10/18 06:20 06:20 WBC 8.7 Hgb 8.2 L Hct 25.8 L MCV 78.3 L MCH 24.9 L MCHC 31.9 L Monocytes % 14.9 H Total Protein 6.0 L Albumin 2.5 L Plan : VAC dressing with WHite foam Continuous 125mmhg Continue IV antibiotics Patient questions answered ...no work till condition improves
--- NOTE | 2018-04-10 16:57 | PN ---
Progress Note (short form) - Note Progress Note: vac just placed continues to have drainage from umbilicus poor appetite Vital Signs Period Temp Pulse Resp BP Sys/Grewal Pulse Ox Last 24 Hr 98.1 F-99.6 F 88-96 16-20 116-157/53-77 cor rrr lungs clear abd soft,nt ext no edema vac dressing placed with +drainage (reported foulsmelling) CBC, BMP 04/10/18 06:20 04/10/18 06:20 6.5% eos Microbiology 04/07/18 15:10 Blood - Peripheral Venous Blood Culture - Preliminary NO GROWTH OBTAINED AFTER 72 HOURS, INCUBATION TO CONTINUE FOR 2 DAYS. 04/07/18 15:10 Blood - Peripheral Venous Blood Culture - Preliminary NO GROWTH OBTAINED AFTER 72 HOURS, INCUBATION TO CONTINUE FOR 2 DAYS. 04/07/18 20:30 Wound Gram Stain - Final 04/07/18 20:30 Wound Wound Culture - Preliminary 04/07/18 15:45 Urine - Urine Clean Catch Urine Culture - Final a/p infected abdominoplasty continued drainage- ?anaerobes creatinine 2- ?is it real, ivf just started will repeat, with eos in the peripheral smear will d/c vanco/zosyn switch to levaquin and flagyl start levaquin after seeing repeat creatinine Problem List - Problems (1) Wound infection Code(s): T14.8XXA - OTHER INJURY OF UNSPECIFIED BODY REGION, INITIAL ENCOUNTER; L08.9 - LOCAL INFECTION OF THE SKIN AND SUBCUTANEOUS TISSUE, UNSP (2) Abscess Code(s): L02.91 - CUTANEOUS ABSCESS, UNSPECIFIED (3) Burn Code(s): T30.0 - BURN OF UNSPECIFIED BODY REGION, UNSPECIFIED DEGREE
[2018-04-10 17:34] LABS: ANION GAP 12 MMOL/L (8-16); BLOOD UREA NITROGEN 9 mg/dL (7-18); CALCIUM 8.3 mg/dL (8.5-10.1); CHLORIDE 108 mmol/L (98-107); CO2 22 mmol/L (21-32); CREATININE 1.9 mg/dL (0.55-1.02); GLUCOSE,RANDOM 103 mg/dL (74-106); SODIUM 142 mmol/L (136-145)
--- NOTE | 2018-04-10 18:27 | PN ---
Teaching Attending Note Name of Resident: Perla Sanchez ATTENDING PHYSICIAN STATEMENT I saw and evaluated the patient. I reviewed the resident's note and discussed the case with the resident. I agree with the resident's findings and plan as documented. SUBJECTIVE: no fever or chills. abd pain and drainage, not drinking enough fluids . nausea and vomiting . OBJECTIVE: NAD Cv : RRr Lungs : CTAB Ext : no edema Abd: soft, TTP . abd wall wound with packing and periumbilical wound with whitish cream on . dressing with purulent discharge ASSESSMENT AND PLAN: 42 y/o lady with h/o HTN, obesity s/p recent liposuction who presented with abd pain and drainage . she was found to have abd wall abscess and a burn 1- Abd wall abscess due to infected surgical wound: - d/w Dr. Heath and Idalmis - wound vac - abx to levaquin and flagyl 2- MARTHA : prerenal Vs AIN. - repat UA with no protein . no eios . blood with eio - follow urine electrolytes - renal US - start IVF - if it worsens , then will get renal help 3- HTN: cont LAbetalol 4-iron def anemia : w/u as out p t DVT PX
--- NOTE | 2018-04-10 19:16 | PN ---
Physical Exam: SUBJECTIVE: Patient seen and examined at bedside this morning. Overnight she continued to have pain in her B/L lower abdominal quadrants at site of surgery with foul, huff colored drainage. She was afebrile overnight. She complained of nausea, billious vomiting X2. This morning, she denies fevers, chills, shortness of breath, chest pain, palpitations. OBJECTIVE: Vital Signs Period Temp Pulse Resp BP Sys/Grewal Pulse Ox Last 24 Hr 98.1 F-99.6 F 88-96 16-20 116-157/53-77 98 GENERAL: The patient is awake, alert, and fully oriented, in no acute distress. HEAD: Normal with no signs of trauma. EYES: PERRL, extraocular movements intact, sclera anicteric, conjunctiva clear. ENT: Oropharynx clear without exudates, moist mucous membranes. NECK: Supple without lymphadenpathy LUNGS: Breath sounds equal, clear to auscultation bilaterally, no wheezes, no crackles. HEART: Regular rate and rhythm, S1, S2 without murmur, rub or gallop. ABDOMEN: Firm, bandaged lower abdomen, currently draining mucopurulent discharge. Mild tenderness to palpation over surgical site. No rebound, no guarding, no hepatosplenomegaly appreciated. EXTREMITIES: 2+ pulses radial and DP. Warm, well-perfused, no edema B/L lower extremities. NEUROLOGICAL: Cranial nerves II through XII grossly intact. Normal speech, no gross focal deficits. PSYCH: Appropriate mood and affect upon my encounter today. Laboratory Results - last 24 hr 04/10/18 04/10/18 04/10/18 06:20 06:20 12:00 WBC 8.7 RBC 3.29 L Hgb 8.2 L Hct 25.8 L MCV 78.3 L MCH 24.9 L MCHC 31.9 L RDW 16.8 H Plt Count 564 H MPV 7.3 L Absolute Neuts (auto) 4.1 Neutrophils % 47.3 Lymphocytes % 30.8 Monocytes % 14.9 H Eosinophils % 6.5 H D Basophils % 0.5 Nucleated RBC % 0 Sodium 141 Potassium 3.9 Chloride 107 Carbon Dioxide 21 Anion Gap 13 BUN 9 Creatinine 2.0 H Creat Clearance w eGFR 27.07 Random Glucose 111 H Calcium 8.3 L Total Bilirubin 0.5 AST 19 ALT 20 Alkaline Phosphatase 65 Total Protein 6.0 L Albumin 2.5 L Urine Color Urine Appearance Urine pH Ur Specific [place] Urine Protein Urine Glucose (UA) Urine Ketones Urine Blood Urine Nitrite Urine Bilirubin Urine Urobilinogen Ur Leukocyte Esterase Urine Osmolality U Random Total Protein Ur Random Sodium 26 Ur Random Potassium 15.3 Ur Random Chloride 17 Urine Creatinine Protein/Creatinin Ratio Random Vancomycin 04/10/18 04/10/18 04/10/18 12:00 12:00 12:00 WBC RBC Hgb Hct MCV MCH MCHC RDW Plt Count MPV Absolute Neuts (auto) Neutrophils % Lymphocytes % Monocytes % Eosinophils % Basophils % Nucleated RBC % Sodium Potassium Chloride Carbon Dioxide Anion Gap BUN Creatinine Creat Clearance w eGFR Random Glucose Calcium Total Bilirubin AST ALT Alkaline Phosphatase Total Protein Albumin Urine Color Straw Urine Appearance Clear Urine pH 5.0 Ur Specific [place] 1.009 Urine Protein Negative Urine Glucose (UA) Negative Urine Ketones Negative Urine Blood Negative Urine Nitrite Negative Urine Bilirubin Negative Urine Urobilinogen Negative Ur Leukocyte Esterase Negative Urine Osmolality 181 L U Random Total Protein 16 H Ur Random Sodium Ur Random Potassium Ur Random Chloride Urine Creatinine 77.5 Protein/Creatinin Ratio 0.2 Random Vancomycin 04/10/18 04/10/18 15:40 17:00 WBC RBC Hgb Hct MCV MCH MCHC RDW Plt Count MPV Absolute Neuts (auto) Neutrophils % Lymphocytes % Monocytes % Eosinophils % Basophils % Nucleated RBC % Sodium 142 Potassium 4.0 Chloride 108 H Carbon Dioxide 22 Anion Gap 12 BUN 9 Creatinine 1.9 H Creat Clearance w eGFR 28.72 Random Glucose 103 Calcium 8.3 L Total Bilirubin AST ALT Alkaline Phosphatase Total Protein Albumin Urine Color Urine Appearance Urine pH Ur Specific [place] Urine Protein Urine Glucose (UA) Urine Ketones Urine Blood Urine Nitrite Urine Bilirubin Urine Urobilinogen Ur Leukocyte Esterase Urine Osmolality U Random Total Protein Ur Random Sodium Ur Random Potassium Ur Random Chloride Urine Creatinine Protein/Creatinin Ratio Random Vancomycin 19.22 Active Medications Generic Name Dose Route Start Last Admin Trade Name Freq PRN Reason Stop Dose Admin Acetaminophen 650 mg 04/09/18 07:45 Tylenol - PO Q6H PRN FEVER Ascorbic Acid 250 mg 04/09/18 22:00 04/10/18 09:48 Vitamin C - PO 250 mg BID FLORES Administration Docusate Sodium 100 mg 04/09/18 22:00 04/10/18 09:47 Colace - PO 100 mg BID FLORES Administration Ferrous Sulfate 325 mg 04/09/18 22:00 04/10/18 09:47 Feosol - PO 325 mg BID FLORES Administration Heparin Sodium (Porcine) 5,000 unit 04/10/18 22:00 Heparin - SQ TID FLORES Sodium Chloride 1,000 mls @ 100 mls/hr 04/10/18 11:30 04/10/18 11:30 Normal Saline - IV 100 mls/hr ASDIR FLORES Administration Metronidazole 500 mg in 100 mls @ 100 mls/hr 04/10/18 18:00 Flagyl 500mg Premixed Ivpb - IVPB Q8H-IV FLORES Labetalol HCl 100 mg 04/08/18 10:00 04/10/18 10:00 Normodyne - PO Not Given BID FLORES Metoclopramide HCl 10 mg 04/11/18 10:00 Reglan - PO DAILY FLORES Silver Sulfadiazine 1 applic 04/08/18 22:00 04/10/18 09:49 Silvadene - TP 1 applic BID FLORES Administration Zinc Sulfate 220 mg 04/08/18 14:45 04/10/18 09:47 Orazinc - PO 220 mg DAILY FLORES Administration ASSESSMENT/PLAN: 42 year old female with history of hypertension, and s/p liposuction and abdominoplasty in [place] (03/11/2018) presented with fevers, and purulent discharge from surgical site. Admitted for sepsis secondary to abdominoplasty, liposuction wound infection. Sepsis secondary to abdominoplasty/ liposuction wound infection -Afebrile overnight. WBC 8.7 today -As per patient, was given Ceftriaxone and Augmentin after her surgery in [place] -CT scan abdomen/ pelvis: extensive edematous changes within subcutaneus anterior abdominal wall with air and fluid collection (13.2 x 3.8 x 5.3 cm). In addition, second area of air/ fluid with direct opening to skin. -ID consult (Dr. De Paz) appreciated: D/C: Vancomycin 1250mg IV Q12H, Zosyn 4.5gm IV Q8H. Begin Flagyl 500mg Q8H, and Levaquin pending repeat Cr in AM. -Plastic surgery consult (Dr. Ruben Howard) appreciated: Necrotic umbilicus was debrided on 04/08/2018. 200mL thick, purulent, foul smelling fluid was drained. Iodoform gauze packing, and covered with clean dry dressing. Added multivitamin, zinc sulfate 220mg PO QD, vitamin C 250mg PO BID. Wound vac. added today continuous at 125mmHg. Silver sulfadiazine cream for burn on abdomen from hot water bottle. -Wound culture: pending preliminary read -Gram stain: Numerous gram negative bacilli -Blood culture: preliminary negative growth 72H -Tylenol 650mg PO Q6H for fevers >100.4F -Reglan 10mg PO QD for nausea. QTc 419. MARTHA -BUN today 13, increased from 5 yesterday. Cr 2.0 increased from 0.6 yesterday -Will follow CMP, urine electrolytes, Og, renal US -Vancomycin and Zosyn discontinued -IV NS increased to 100mL/hr Microcytic Anemia -Hb 8.2 (8.1 yesterday) Hct 25.8 (25.4 yesterday) -Fe 10, TIBC 264, Ferritin 123.5, Iron saturation 4%, B12 596, Folate 32 -Patient started on Ferrous sulfate 325mg PO BID -Will follow Hb/ Hct Hypertension -Continue home medication: Labetalol 100mg PO BID FEN -IV NS at 100ml/hr -Will follow CMP -Regular diet Prophylaxis -Heparin 5000u subq TID Disposition: Continue care on medical surgical floor Visit type - Emergency Visit Emergency Visit: No - New Patient This patient is new to me today: No - Critical Care Critical Care patient: No - Discharge Referral Referred to [facility] Med [facility] No
[2018-04-10] MEDS: HEPARIN NA (PORCINE) 5,000 UNITS/ML 1ML VIAL SQ SCH (22:23)
[2018-04-11] MEDS: SODIUM CHLORIDE 1,000 ML IV SCH ×3 (02:19→15:05)
[2018-04-11] MEDS: HEPARIN NA (PORCINE) 5,000 UNITS/ML 1ML VIAL SQ SCH ×2 (06:31→15:05)
[2018-04-11 08:19] LABS: BASO % 0.8 % (0-2.0); EOS % 6.4 % (0-4.5); HEMATOCRIT 25.1 % (32.4-45.2); HEMOGLOBIN 7.9 GM/dL (10.7-15.3); LYMPH % 28.6 % (8-40); MCH 24.5 pg (25.7-33.7); MCHC 31.3 g/dl (32.0-36.0); MEAN CELL VOLUME 78.5 fl (80-96); MEAN PLT VOLUME 7.2 fl (7.5-11.1); NEUT % 51.2 % (42.8-82.8); PLATELET COUNT 581 K/MM3 (134-434); RDW 16.8 % (11.6-15.6); WHITE BLOOD COUNT 8.1 K/mm3 (4.0-10.0)
[2018-04-11 08:53] LABS: ALBUMIN 2.4 g/dl (3.4-5.0); ALK PHOS 62 U/L (45-117); ANION GAP 11 MMOL/L (8-16); BILIRUBIN,TOTAL 0.3 mg/dL (0.2-1.0); BLOOD UREA NITROGEN 8 mg/dL (7-18); CALCIUM 7.9 mg/dL (8.5-10.1); CHLORIDE 108 mmol/L (98-107); CO2 23 mmol/L (21-32); CREATININE 1.8 mg/dL (0.55-1.02); GLUCOSE,RANDOM 100 mg/dL (74-106); POTASSIUM 3.9 mmol/L (3.5-5.1); SGOT/AST 13 U/L (15-37); SGPT/ALT 17 U/L (12-78); SODIUM 142 mmol/L (136-145); TOT PROT 6.1 g/dl (6.4-8.2)
[2018-04-11] MEDS: METOCLOPRAMIDE HCL 10 MG TABLET (FP) PO SCH (10:34)
--- NOTE | 2018-04-11 11:12 | PN ---
Teaching Attending Note Name of Resident: Stan Rodriguez ATTENDING PHYSICIAN STATEMENT I saw and evaluated the patient. I reviewed the resident's note and discussed the case with the resident. I agree with the resident's findings and plan as documented. SUBJECTIVE: no fever or chills. cont to be nauseous but feels better today. OBJECTIVE: NAD Cv : RRR, No MRG Lungs : CTAB Ext : no edema Abd: soft, TTP . abd wall wound vac. 5x4 cm superficial burn wound with purulent discharge . ASSESSMENT AND PLAN: 42 y/o lady with h/o HTN, obesity s/p recent liposuction who presented with abd pain and drainage . she was found to have abd wall abscess and a burn 1- Abd wall abscess due to infected surgical wound: - cont wound vac. - cont falgyl and levaquin . cr cl 67 %, no need to adjust levaquin dose - follow wound cx 2- AMRTHA: likely pre-renal azotemia as feNA is 0.5 %. cr slightly improved with IVF - no protein in urine . - renal US with no hydro - cont IVF 3- HTN: cont Labetalol , patient request half the dose only 4-Iron def anemia: with slightly worsening HB ? dilution . no signs of active bleed. check OB in stool if Hb cont to drop, can do hemolysis w/u no need for transfusion at this time cont iron supp rest of w/u as out pt DVT PX
[2018-04-11] MEDS ORDERED: PT OWN MED DRAWER 7, Y5N ONE ×2 (11:31→21:10)
[2018-04-11] MEDS: LABETALOL HCL 100 MG TABLET (FP) PO SCH ×2 (12:20→12:41)
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
[2018-04-11 12:27] LABS: BASO % 0.7 % (0-2.0); EOS % 5.9 % (0-4.5); HEMATOCRIT 25.6 % (32.4-45.2); HEMOGLOBIN 8.1 GM/dL (10.7-15.3); LYMPH % 28.3 % (8-40); MCH 24.8 pg (25.7-33.7); MCHC 31.7 g/dl (32.0-36.0); MEAN CELL VOLUME 78.1 fl (80-96); MEAN PLT VOLUME 7.2 fl (7.5-11.1); MONO % 12.1 % (3.8-10.2); PLATELET COUNT 616 K/MM3 (134-434); RBC 3.28 M/mm3 (3.60-5.2); RDW 16.8 % (11.6-15.6); WHITE BLOOD COUNT 8.2 K/mm3 (4.0-10.0)
[2018-04-11] MEDS: DOCUSATE SODIUM 100 MG CAPSULE (FP) PO SCH (12:42)
[2018-04-11] MEDS: ASCORBIC ACID 500 MG TABLET (FP) PO SCH (12:42)
[2018-04-11] MEDS: ZINC SULFATE 220 MG CAPSULE (FP) PO SCH (12:43)
[2018-04-11] MEDS: SILVER SULFADIAZINE 1% TOP CREAM 50 GM JAR TP SCH (12:43)
[2018-04-11] MEDS: FERROUS SO4 325 MG TABLET (FP) PO SCH (12:43)
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
[2018-04-11] MEDS ORDERED: METOCLOPRAMIDE HCL 10 MG TABLET (FP) PO ONE (22:49)
[2018-04-12] MEDS: DOCUSATE SODIUM 100 MG CAPSULE (FP) PO SCH ×3 (00:20→22:16)
[2018-04-12] MEDS: FERROUS SO4 325 MG TABLET (FP) PO SCH ×3 (00:20→22:16)
[2018-04-12] MEDS: ASCORBIC ACID 500 MG TABLET (FP) PO SCH ×3 (00:20→22:16)
[2018-04-12] MEDS: HEPARIN NA (PORCINE) 5,000 UNITS/ML 1ML VIAL SQ SCH ×4 (00:20→22:15)
[2018-04-12] MEDS: SILVER SULFADIAZINE 1% TOP CREAM 50 GM JAR TP SCH ×3 (00:21→22:26)
[2018-04-12] MEDS: LABETALOL HCL 100 MG TABLET (FP) PO SCH ×4 (00:21→22:15)
[2018-04-12] MEDS: SODIUM CHLORIDE 1,000 ML IV SCH ×3 (02:19→22:15)
[2018-04-12 07:41] LABS: BASO % 0.5 % (0-2.0); EOS % 2.7 % (0-4.5); HEMATOCRIT 23.4 % (32.4-45.2); HEMOGLOBIN 7.5 GM/dL (10.7-15.3); LYMPH % 21.8 % (8-40); MCH 24.8 pg (25.7-33.7); MCHC 31.9 g/dl (32.0-36.0); MEAN CELL VOLUME 77.6 fl (80-96); MONO % 12.1 % (3.8-10.2); NEUT % 62.9 % (42.8-82.8); PLATELET COUNT 553 K/MM3 (134-434); RBC 3.01 M/mm3 (3.60-5.2); RDW 16.9 % (11.6-15.6); WHITE BLOOD COUNT 10.1 K/mm3 (4.0-10.0)
[2018-04-12 08:40] LABS: ALBUMIN 2.3 g/dl (3.4-5.0); ANION GAP 8 MMOL/L (8-16); BLOOD UREA NITROGEN 8 mg/dL (7-18); CHLORIDE 112 mmol/L (98-107); CO2 23 mmol/L (21-32); CREATININE 1.7 mg/dL (0.55-1.02); GLUCOSE,RANDOM 100 mg/dL (74-106); POTASSIUM 3.9 mmol/L (3.5-5.1); SGOT/AST 12 U/L (15-37); SGPT/ALT 12 U/L (12-78); SODIUM 143 mmol/L (136-145)
[2018-04-12 08:42] LABS: ALK PHOS 57 U/L (45-117); BILIRUBIN,TOTAL 0.4 mg/dL (0.2-1.0); TOT PROT 5.8 g/dl (6.4-8.2)
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
[2018-04-12] MEDS: METOCLOPRAMIDE HCL 10 MG TABLET (FP) PO SCH (10:32)
[2018-04-12] MEDS: ZINC SULFATE 220 MG CAPSULE (FP) PO SCH (10:32)
[2018-04-12] MEDS ORDERED: ONDANSETRON 8 MG TABLET (FP) PO PRN (10:49)
[2018-04-12] MEDS ORDERED: ONDANSETRON 4 MG/2 ML VIAL IVPUSH STA (11:00)
[2018-04-12 12:43] LABS: BASO % 0.6 % (0-2.0); EOS % 2.2 % (0-4.5); HEMATOCRIT 23.9 % (32.4-45.2); HEMOGLOBIN 7.6 GM/dL (10.7-15.3); LYMPH % 18.7 % (8-40); MCH 24.8 pg (25.7-33.7); MCHC 31.8 g/dl (32.0-36.0); MEAN CELL VOLUME 78.1 fl (80-96); MONO % 11.1 % (3.8-10.2); NEUT % 67.4 % (42.8-82.8); PLATELET COUNT 562 K/MM3 (134-434); RBC 3.07 M/mm3 (3.60-5.2); RDW 17.2 % (11.6-15.6); WHITE BLOOD COUNT 10.1 K/mm3 (4.0-10.0)
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
--- NOTE | 2018-04-12 15:26 | PN ---
Progress Note (short form) - Note Progress Note: FU abdominoplasty with complications,Open wound with excessive drainage purulent /fatty tissue Patient diet inadequate, only jell-O C/O Nausea , unable to hold any other food.....Consider Metronidazole side effect ....if it can be switched? Discuss with ID Patient requires High Protein diet for healing, Hb/Hct has dropped further , healing will get prolonged . Iron could be another consideration for side effects Selected Entries 04/12/18 07:00 Temperature 98.9 F Pulse Rate 84 Blood Pressure 133/59 Laboratory Tests 04/11/18 04/12/18 06:20 12:15 WBC 8.1 10.1 H Hgb 7.6 L Hct 23.9 L MCV 78.1 L MCH 24.8 L MCHC 31.8 L RDW 17.2 H Plt Count 562 H Monocytes % 11.1 H Continue VAC dressing Drainage will continue till all damaged fat has been removed , defect will take an extended time to heal Patient counselled avoid high sugar foods, prefer Protein diet with supplements , ambulate as tolerated
[2018-04-12] MEDS: ONDANSETRON 4 MG/2 ML VIAL IVPUSH PRN (22:20)
[2018-04-13] MEDS: HEPARIN NA (PORCINE) 5,000 UNITS/ML 1ML VIAL SQ SCH (05:18)
[2018-04-13] MEDS: SODIUM CHLORIDE 1,000 ML IV SCH ×3 (07:24→19:17)
[2018-04-13 07:57] LABS: BASO % 0.5 % (0-2.0); EOS % 2.7 % (0-4.5); HEMATOCRIT 22.7 % (32.4-45.2); HEMOGLOBIN 7.2 GM/dL (10.7-15.3); MCH 24.9 pg (25.7-33.7); MCHC 31.9 g/dl (32.0-36.0); MEAN CELL VOLUME 78.1 fl (80-96); MEAN PLT VOLUME 6.9 fl (7.5-11.1); MONO % 10.3 % (3.8-10.2); NEUT % 64.5 % (42.8-82.8); PLATELET COUNT 537 K/MM3 (134-434); RBC 2.91 M/mm3 (3.60-5.2); RDW 17.2 % (11.6-15.6)
[2018-04-13 08:31] LABS: CALCIUM 7.9 mg/dL (8.5-10.1); CHLORIDE 111 mmol/L (98-107); POTASSIUM 3.7 mmol/L (3.5-5.1); SODIUM 143 mmol/L (136-145)
[2018-04-13 08:35] LABS: ANION GAP 9 MMOL/L (8-16); BLOOD UREA NITROGEN 8 mg/dL (7-18); CO2 23 mmol/L (21-32); CREATININE 1.6 mg/dL (0.55-1.02); GLUCOSE,RANDOM 110 mg/dL (74-106)
[2018-04-13] MEDS: ONDANSETRON 4 MG/2 ML VIAL IVPUSH PRN ×3 (08:39→20:42)
[2018-04-13] MEDS: ASCORBIC ACID 500 MG TABLET (FP) PO SCH ×2 (10:29→21:26)
[2018-04-13] MEDS: DOCUSATE SODIUM 100 MG CAPSULE (FP) PO SCH ×2 (10:29→21:27)
[2018-04-13] MEDS: ZINC SULFATE 220 MG CAPSULE (FP) PO SCH (10:29)
[2018-04-13] MEDS: METOCLOPRAMIDE HCL 10 MG TABLET (FP) PO SCH (10:29)
[2018-04-13] MEDS: FERROUS SO4 325 MG TABLET (FP) PO SCH ×2 (10:30→21:28)
[2018-04-13] MEDS: LABETALOL HCL 100 MG TABLET (FP) PO SCH ×2 (10:30→21:27)
[2018-04-13] MEDS: SILVER SULFADIAZINE 1% TOP CREAM 50 GM JAR TP SCH ×2 (11:12→21:28)
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
[2018-04-13] MEDS: ACETAMINOPHEN 325 MG TABLET (FP) PO PRN ×2 (15:15→21:27)
[2018-04-13 18:17] LABS: HEMATOCRIT 22.7 % (32.4-45.2); HEMOGLOBIN 7.4 GM/dL (10.7-15.3); MCH 25.5 pg (25.7-33.7); MCHC 32.7 g/dl (32.0-36.0); MEAN PLT VOLUME 7.5 fl (7.5-11.1); PLATELET COUNT 554 K/MM3 (134-434); RBC 2.91 M/mm3 (3.60-5.2); RDW 17.1 % (11.6-15.6); WHITE BLOOD COUNT 11.4 K/mm3 (4.0-10.0)
[2018-04-13 21:21] LABS: URINE APPEARANCE CLEAR; URINE BILIRUBIN NEGATIVE (<2.0 mg/dL); URINE COLOR LTYELLOW; URINE GLUCOSE (UA) NEGATIVE (NEGATIVE); URINE KETONE NEGATIVE (NEGATIVE); URINE NITRITE NEGATIVE (NEGATIVE); URINE PROTEIN NEGATIVE (NEGATIVE); URINE UROBILINOGEN NEGATIVE mg/dL (0.2-1.0)
[2018-04-13 21:41] LABS: URINE LEUK ESTERASE 1+ (NEGATIVE)
[2018-04-13 21:43] LABS: EPI CELLS RARE /HPF (FEW); URINE BACTERIA RARE /hpf (NONE SEEN); URINE MUCUS RARE
[2018-04-14] MEDS ORDERED: PT OWN MED DRAWER 7, Y5N ONE (06:17)
[2018-04-14] MEDS: SODIUM CHLORIDE 1,000 ML IV SCH ×3 (06:44→23:45)
[2018-04-14 07:00] LABS: HEMATOCRIT 22.1 % (32.4-45.2); MCH 24.2 pg (25.7-33.7); MCHC 31.3 g/dl (32.0-36.0); MEAN CELL VOLUME 77.4 fl (80-96); PLATELET COUNT 480 K/MM3 (134-434); RBC 2.86 M/mm3 (3.60-5.2); RDW 17.2 % (11.6-15.6); WHITE BLOOD COUNT 11.2 K/mm3 (4.0-10.0)
[2018-04-14 07:20] LABS: HEMOGLOBIN 6.9 GM/dL (10.7-15.3)
[2018-04-14 07:36] LABS: ALBUMIN 2.3 g/dl (3.4-5.0); ANION GAP 8 MMOL/L (8-16); BLOOD UREA NITROGEN 11 mg/dL (7-18); CHLORIDE 110 mmol/L (98-107); CO2 26 mmol/L (21-32); CREATININE 1.5 mg/dL (0.55-1.02); GLUCOSE,RANDOM 106 mg/dL (74-106); POTASSIUM 3.5 mmol/L (3.5-5.1); SGOT/AST 27 U/L (15-37); SGPT/ALT 19 U/L (12-78); SODIUM 144 mmol/L (136-145)
[2018-04-14 07:38] LABS: ALK PHOS 50 U/L (45-117); BILIRUBIN,TOTAL 0.3 mg/dL (0.2-1.0); TOT PROT 5.7 g/dl (6.4-8.2)
[2018-04-14] MEDS: SILVER SULFADIAZINE 1% TOP CREAM 50 GM JAR TP SCH ×2 (10:00→23:42)
[2018-04-14] MEDS: FERROUS SO4 325 MG TABLET (FP) PO SCH ×2 (10:05→23:41)
[2018-04-14] MEDS: DOCUSATE SODIUM 100 MG CAPSULE (FP) PO SCH ×2 (10:05→23:46)
[2018-04-14] MEDS: METOCLOPRAMIDE HCL 10 MG TABLET (FP) PO SCH (10:05)
[2018-04-14] MEDS: ASCORBIC ACID 500 MG TABLET (FP) PO SCH ×2 (10:05→23:41)
[2018-04-14] MEDS: ZINC SULFATE 220 MG CAPSULE (FP) PO SCH (10:06)
[2018-04-14] MEDS: LABETALOL HCL 100 MG TABLET (FP) PO SCH ×2 (10:06→23:41)
[2018-04-14] MEDS: ENOXAPARIN NA (PORCINE) 40 MG/0.4 ML DISP.SYRIN SQ SCH (10:06)
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
[2018-04-14] MEDS: ONDANSETRON 4 MG/2 ML VIAL IVPUSH PRN ×2 (16:41→22:54)
[2018-04-15] MEDS: ONDANSETRON 4 MG/2 ML VIAL IVPUSH PRN ×3 (08:42→23:30)
[2018-04-15] MEDS: SODIUM CHLORIDE 1,000 ML IV SCH ×3 (09:01→18:02)
[2018-04-15] MEDS: ZINC SULFATE 220 MG CAPSULE (FP) PO SCH (10:03)
[2018-04-15] MEDS: FERROUS SO4 325 MG TABLET (FP) PO SCH ×2 (10:04→23:29)
[2018-04-15] MEDS: METOCLOPRAMIDE HCL 10 MG TABLET (FP) PO SCH (10:04)
[2018-04-15] MEDS: LABETALOL HCL 100 MG TABLET (FP) PO SCH ×2 (10:04→23:29)
[2018-04-15] MEDS: ASCORBIC ACID 500 MG TABLET (FP) PO SCH ×2 (10:05→23:30)
[2018-04-15] MEDS: ENOXAPARIN NA (PORCINE) 40 MG/0.4 ML DISP.SYRIN SQ SCH (10:05)
[2018-04-15] MEDS: DOCUSATE SODIUM 100 MG CAPSULE (FP) PO SCH ×2 (10:06→23:30)
[2018-04-15 10:18] LABS: BASO % 0.5 % (0-2.0); EOS % 4.4 % (0-4.5); HEMATOCRIT 25.3 % (32.4-45.2); HEMOGLOBIN 8.1 GM/dL (10.7-15.3); LYMPH % 18.2 % (8-40); MCH 24.8 pg (25.7-33.7); MCHC 31.8 g/dl (32.0-36.0); MEAN CELL VOLUME 77.9 fl (80-96); MEAN PLT VOLUME 7.1 fl (7.5-11.1); MONO % 10.1 % (3.8-10.2); NEUT % 66.8 % (42.8-82.8); PLATELET COUNT 515 K/MM3 (134-434); RBC 3.25 M/mm3 (3.60-5.2); RDW 17.2 % (11.6-15.6); WHITE BLOOD COUNT 11.1 K/mm3 (4.0-10.0)
[2018-04-15 10:39] LABS: ANION GAP 6 MMOL/L (8-16); BLOOD UREA NITROGEN 11 mg/dL (7-18); CALCIUM 8.1 mg/dL (8.5-10.1); CHLORIDE 112 mmol/L (98-107); CO2 24 mmol/L (21-32); CREATININE 1.3 mg/dL (0.55-1.02); GLUCOSE,RANDOM 112 mg/dL (74-106); POTASSIUM 3.5 mmol/L (3.5-5.1); SODIUM 142 mmol/L (136-145)
[2018-04-15] MEDS: SILVER SULFADIAZINE 1% TOP CREAM 50 GM JAR TP SCH ×2 (11:28→23:30)
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
[2018-04-16] MEDS: SODIUM CHLORIDE 1,000 ML IV SCH ×2 (05:33→11:44)
[2018-04-16 07:48] LABS: BASO % 0.5 % (0-2.0); HEMATOCRIT 25.1 % (32.4-45.2); HEMOGLOBIN 7.9 GM/dL (10.7-15.3); LYMPH % 19.2 % (8-40); MCH 24.6 pg (25.7-33.7); MCHC 31.3 g/dl (32.0-36.0); MEAN CELL VOLUME 78.4 fl (80-96); MEAN PLT VOLUME 7.3 fl (7.5-11.1); NEUT % 66.3 % (42.8-82.8); PLATELET COUNT 479 K/MM3 (134-434); WHITE BLOOD COUNT 11.2 K/mm3 (4.0-10.0)
[2018-04-16 08:02] LABS: CHLORIDE 112 mmol/L (98-107); POTASSIUM 3.7 mmol/L (3.5-5.1); SODIUM 147 mmol/L (136-145)
[2018-04-16 08:20] LABS: ANION GAP 13 MMOL/L (8-16); BLOOD UREA NITROGEN 11 mg/dL (7-18); CALCIUM 8.1 mg/dL (8.5-10.1); CO2 22 mmol/L (21-32); CREATININE 1.2 mg/dL (0.55-1.02); GLUCOSE,RANDOM 104 mg/dL (74-106)
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
[2018-04-16] MEDS: FERROUS SO4 325 MG TABLET (FP) PO SCH ×2 (11:36→21:54)
[2018-04-16] MEDS: DOCUSATE SODIUM 100 MG CAPSULE (FP) PO SCH ×2 (11:36→21:54)
[2018-04-16] MEDS: ENOXAPARIN NA (PORCINE) 40 MG/0.4 ML DISP.SYRIN SQ SCH (11:37)
[2018-04-16] MEDS: LABETALOL HCL 100 MG TABLET (FP) PO SCH ×2 (11:40→21:52)
[2018-04-16] MEDS: ZINC SULFATE 220 MG CAPSULE (FP) PO SCH (11:41)
[2018-04-16] MEDS: ASCORBIC ACID 500 MG TABLET (FP) PO SCH ×2 (11:42→21:53)
[2018-04-16] MEDS: SILVER SULFADIAZINE 1% TOP CREAM 50 GM JAR TP SCH (11:46)
[2018-04-16] MEDS: METOCLOPRAMIDE HCL 10 MG TABLET (FP) PO SCH (11:46)
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
[2018-04-16] MEDS ORDERED: SODIUM CHLORIDE 0.45% 1,000 ML IV SCH (17:00)
[2018-04-16] MEDS: SODIUM CHLORIDE 0.45% 1,000 ML IV SCH (17:40)
[2018-04-16] MEDS: ONDANSETRON 4 MG/2 ML VIAL IVPUSH PRN (21:28)
[2018-04-17] MEDS: SILVER SULFADIAZINE 1% TOP CREAM 50 GM JAR TP SCH ×2 (00:12→11:01)
[2018-04-17] MEDS: SODIUM CHLORIDE 0.45% 1,000 ML IV SCH ×3 (01:58→19:08)
[2018-04-17 07:12] LABS: BASO % 0.9 % (0-2.0); EOS % 4.5 % (0-4.5); HEMATOCRIT 26.4 % (32.4-45.2); HEMOGLOBIN 8.5 GM/dL (10.7-15.3); LYMPH % 20.6 % (8-40); MCH 25.6 pg (25.7-33.7); MCHC 32.3 g/dl (32.0-36.0); MEAN CELL VOLUME 79.3 fl (80-96); MEAN PLT VOLUME 7.4 fl (7.5-11.1); PLATELET COUNT 484 K/MM3 (134-434); RBC 3.32 M/mm3 (3.60-5.2); RDW 17.8 % (11.6-15.6); WHITE BLOOD COUNT 10.2 K/mm3 (4.0-10.0)
[2018-04-17 08:30] LABS: ALBUMIN 2.6 g/dl (3.4-5.0); ANION GAP 13 MMOL/L (8-16); BLOOD UREA NITROGEN 10 mg/dL (7-18); CALCIUM 8.2 mg/dL (8.5-10.1); CHLORIDE 109 mmol/L (98-107); CO2 22 mmol/L (21-32); GLUCOSE,RANDOM 93 mg/dL (74-106); SGPT/ALT 13 U/L (12-78); SODIUM 144 mmol/L (136-145)
[2018-04-17 08:32] LABS: ALK PHOS 48 U/L (45-117); BILIRUBIN,TOTAL 0.3 mg/dL (0.2-1.0); TOT PROT 5.9 g/dl (6.4-8.2)
[2018-04-17 08:34] LABS: POTASSIUM 4.3 mmol/L (3.5-5.1); SGOT/AST 16 U/L (15-37)
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
[2018-04-17] MEDS: ZINC SULFATE 220 MG CAPSULE (FP) PO SCH (10:59)
[2018-04-17] MEDS: FERROUS SO4 325 MG TABLET (FP) PO SCH (10:59)
[2018-04-17] MEDS: ASCORBIC ACID 500 MG TABLET (FP) PO SCH (11:00)
[2018-04-17] MEDS: ENOXAPARIN NA (PORCINE) 40 MG/0.4 ML DISP.SYRIN SQ SCH (11:00)
[2018-04-17] MEDS: DOCUSATE SODIUM 100 MG CAPSULE (FP) PO SCH (11:00)
[2018-04-17] MEDS: LABETALOL HCL 100 MG TABLET (FP) PO SCH (11:00)
[2018-04-17] MEDS: METOCLOPRAMIDE HCL 10 MG TABLET (FP) PO SCH (11:02)
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
[2018-04-17 18:22] VITALS: BP 141/90; PULSE 79; TEMP 98
[2018-04-17] MEDS ORDERED: LACTOBACILLUS ACIDOPHILUS 1 TABLET PO SCH (22:00)
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
== END 2018-04-17 19:38 | disposition home health service (06) | DRG 856 ==
LOC: JER 14:12 → JERBED 19:41 → J5S 21:52
PROVIDERS: ADMIT Internal Medicine; ATTEND Internal Medicine
PROC: 0JB80ZZ Excision of Abdomen Subcutaneous Tissue and Fascia, Open Approach (ICD-10-PCS; principal; 2018-04-08)
PROC: 30233N1 Transfusion of Nonautologous Red Blood Cells into Peripheral Vein, Percutaneous Approach (ICD-10-PCS; 2018-04-14)
DX: T81.4XXA Infection following a procedure, initial encounter (principal); A41.9 Sepsis, unspecified organism; L02.91 Cutaneous abscess, unspecified; N17.9 Acute kidney failure, unspecified; Z68.41 Body mass index [BMI] 40.0-44.9, adult; Y83.9 Surgical procedure, unspecified as the cause of abnormal reaction of the patient, or of later complication, without mention of misadventure at the time of the procedure; I10 Essential (primary) hypertension; D50.9 Iron deficiency anemia, unspecified; R11.0 Nausea; E66.9 Obesity, unspecified
CPT/HCPCS: 36415; 36430; 71045-TC-FY; 71046-TC-FY; 74018-TC-FY; 74177-TC; 76775-TC; 80048; 80053; 81003; 81015; 82272; 82436; 82570; 82607; 82728; 82746; 83010; 83540; 83550; 83605; 83615; 83735; 83935; 84100; 84133; 84156; 84300; 84484; 84703; 85025; 85027; 85044; 85610; 85730; 86850; 86900; 86901; 86922; 87040; 87070; 87086; 87186; 87205; 87324; 87449; 93005; 93010; 99285-25; G0480; J0131; J1644; J7030; P9038; P9058

== ENCOUNTER 2018-08-11 17:32 | Emergency (ER) | payer OTHER ==
[2018-08-11 17:43] VITALS: PULSE 86; TEMP 97.7; BMI 43.9
--- NOTE | 2018-08-11 18:23 | PDOC ---
Suture Removal/Wound Check HPI - History of Present Illness Chief Complaint: Revisit,Wound Recheck Stated Complaint: ABDOMINAL WOUND Time Seen by Provider: 08/11/18 18:00 History Source: Yes: Patient, Old Records Exam Limitations: Yes: No Limitations - Previous ED Treatment Type of procedure performed on last visit: Yes: Skin Ulcer Dressing Past History - Past Medical History Allergies/Adverse Reactions: Allergies Allergy/AdvReac Type Severity Reaction Status Date / Time No Known Allergies Allergy Verified 08/11/18 17:43 Home Medications: Ambulatory Orders Ascorbic Acid [Vitamin C -] 250 mg PO BID tablet 04/17/18 Ferrous Sulfate [Feosol] 325 mg PO BID #60 mg 04/17/18 Labetalol HCl [Normodyne -] 50 mg PO BID 30 Days #30 tablet 04/17/18 Zinc Sulfate [Orazinc -] 220 mg PO DAILY #30 capsule 04/17/18 Anemia: No Asthma: No Cancer: No Cardiac Disorders: Yes ([place]) CVA: No COPD: No Dementia: No Diabetes: No Dialysis: No GI Disorders: No Disorders: No HTN: Yes Hypercholesterolemia: No Kidney Stones: No Liver Disease: No Seizures: No Thyroid Disease: No - Surgical History Appendectomy: Yes (20 yrs) Cardiac Surgery: No Cholecystectomy: No Lung Surgery: No Neurologic Surgery: No - Immunization History Immunization Up to Date: Yes - Suicide/Smoking/Psychosocial Hx Smoking Status: No Smoking History: Never smoked Have you smoked in the past 12 months: No Number of Cigarettes Smoked Daily: 0 If you are a former smoker, when did you quit?: Social smoker Hx Alcohol Use: No Drug/Substance Use Hx: No Substance Use Type: None Hx Substance Use Treatment: No Suture Removal/Wound Check PE - Physical Exam Laceration/Wound Check Symptoms: reports: None Current Severity Level: None Maximum Severity Level: None Pain Localization: None Location of Laceration/Wound: bilateral: Abdomen (at umbilicus) *Review of Systems - Review of Systems Able to Perform ROS?: Yes Integumentary: Yes: See HPI All Other Systems: Reviewed and Negative *Physical Exam - Vital Signs Last Vital Signs Temp Pulse Resp BP Pulse Ox 97.7 F 86 18 186/93 H 99 08/11/18 17:39 08/11/18 17:39 08/11/18 17:39 08/11/18 17:39 08/11/18 17:39 - Physical Exam General Appearance: Yes: Appropriately Dressed. No: Apparent Distress Integumentary: positive: Other (3.5cm deep tunnel from 1.5cm umbilical wound at the 6 o'clock position) Moderate Sedation - Procedure Monitoring Vital Signs: Procedure Monitoring Vital Signs Temperature 97.7 F 08/11/18 17:39 Pulse Rate 86 08/11/18 17:39 Respiratory Rate 18 08/11/18 17:39 Blood Pressure 186/93 H 08/11/18 17:39 O2 Sat by Pulse Oximetry (%) 99 08/11/18 17:39 Medical Decision Making - Medical Decision Making 08/11/18 18:28 A/P: 42-year-old woman for evaluation of abdominal wound 1.5 cm circular umbilical wounds located at the 6 o'clock position. 3.5 cm tunneling present. Granulation tissue is present no discharge or drainage from the site Dressing change Reassurance Discharged to follow-up with Dr. Sherman as previously scheduled *DC/Admit/Observation/Transfer Diagnosis at time of Disposition: Non-pressure chronic ulcer of skin of other sites with fat layer exposed - Discharge Dispostion Disposition: HOME Condition at time of disposition: Stable Decision to Admit order: No - Referrals Referrals: Tino Chung [Primary Care Provider] - - Patient Instructions Additional Instructions: Continue dressing changes as previous directed. Follow up with Dr. Sherman as previously scheduled. Return to ER for any concerns. [email or web address] - Post Discharge Activity
[2018-08-11 18:51] VITALS: BP 160/90
== END 2018-08-11 18:51 | disposition home or self-care (01) ==
LOC: JERFT 17:32
DX: Z48.01 Encounter for change or removal of surgical wound dressing (principal)
CPT/HCPCS: 99281-25

== ENCOUNTER 2019-02-16 13:11 | Emergency (ER) | payer OTHER ==
[2019-02-16 13:31] VITALS: BMI 43.9
--- NOTE | 2019-02-16 14:07 | PDOC ---
History of Present Illness - General Chief Complaint: Lightheaded Stated Complaint: HIGH BLOOD PRESSURE Time Seen by Provider: 02/16/19 13:58 - History of Present Illness Initial Comments: 02/16/19 15:56 43yo F hx HTN and abdominoplasty (2018 w/post-op infxn, resolved) presents from home c/o headache and high BP. Pt felt a little nauseous last night before bed, but was otherwise well. Pt woke up this AM with a headache and R eye irritation. Pt took her BP and it was 184/100 which made her anxious. She took her Labetalol 100 as prescribed (100 BID) and her BP decreased. Headache is tight, bitemporal, pressure type, circumferential around top of head, gradual onset, constant, worsening, now 5/10 severity. When pt woke up, she felt like R eye had something in it, but she tried to wash it out without improvement and she does not recall anything getting into eye. Denies dust or working with machinery or any other flying things. Since then, R eye has felt itchy and burning and is tearing. Endorses photophobia and light-headedness. Denies vertigo or syncope. Pt states that the R side of her face is swollen. Denies pain, pain with movement, blurry vision, visual deficits, redness, warmth, fever , difficulty swallowing/speaking/breathing, swollen lip or tongue, hx of allergic reactions, new foods. Endorses difficulty taking deep breaths for 6 months, worse with exertion and lying down. Endorses 20lb weight gain in past year. Denies SOB, cough, wheezing, hx of respiratory problems, CP, vomiting, abdominal pain, numbness/tingling, weakness, facial droop, back pain, neck pain , blood in stool, dysuria. Endorses hx of headaches that feel like this one but has never had eye involvement before. MH: HTN Meds: Labetalol Surg: abdominoplasty, appendectomy All: NKDA 02/16/19 19:30 02/16/19 19:35 Past History - Past Medical History Allergies/Adverse Reactions: Allergies Allergy/AdvReac Type Severity Reaction Status Date / Time No Known Allergies Allergy Verified 02/16/19 13:27 Home Medications: Ambulatory Orders Labetalol HCl [Normodyne -] 100 mg PO BID 02/16/19 Anemia: No Asthma: No Cancer: No Cardiac Disorders: Yes ([place]) CVA: No COPD: No Dementia: No Diabetes: No Dialysis: No GI Disorders: No Disorders: No HTN: Yes Hypercholesterolemia: No Kidney Stones: No Liver Disease: No Seizures: No Thyroid Disease: No - Surgical History Appendectomy: Yes (20 yrs) Cardiac Surgery: No Cholecystectomy: No Lung Surgery: No Neurologic Surgery: No - Immunization History Immunization Up to Date: Yes - Suicide/Smoking/Psychosocial Hx Smoking Status: No Smoking History: Never smoked Have you smoked in the past 12 months: No Number of Cigarettes Smoked Daily: 0 If you are a former smoker, when did you quit?: Social smoker Information on smoking cessation initiated: No Hx Alcohol Use: No Drug/Substance Use Hx: No Substance Use Type: None Hx Substance Use Treatment: No Review of Systems - Review of Systems Comments:: 02/16/19 15:49 Constitutional: Negative for chills, fever, fatigue. HENT: Positive for R-sided face swelling? Negative for sore throat, rhinorrhea, congestion. Eyes: Positive for R eye burning, itching, and tearing. Negative for visual disturbance. Respiratory: Positive for difficulty taking deep breaths (chronic). Negative for shortness of breath, cough, and wheezing. Cardiovascular: Negative for chest pain, palpitations, and leg swelling. Gastrointestinal: Negative for abdominal pain, blood in stool, constipation, diarrhea, nausea, and vomiting. Genitourinary: Negative for dysuria, flank pain, and hematuria. Musculoskeletal: Negative for myalgias, back pain, and neck pain. Skin: Negative for rash. Neurological: Positive for light-headedness and headache. Negative for dizziness , syncope, weakness, numbness. Psychiatric/Behavioral: Negative for behavioral problems and confusion. *Physical Exam - Vital Signs Last Vital Signs Temp Pulse Resp BP Pulse Ox 98.4 F 86 18 164/83 95 02/16/19 13:28 02/16/19 13:28 02/16/19 13:28 02/16/19 13:28 02/16/19 13:28 - Physical Exam Comments: 02/16/19 19:35 Gen: Alert, NAD, comfortable-appearing, obese HEENT: No swelling of face. No redness of eyes, no foreign objects visualized in eyes. No pain with EOMI. PERRL, EOMI, MMM, NCAT. No conjunctival pallor. Sclera are non-icteric. Oropharynx is clear. CV: Regular rate and rhythm. No murmurs, rubs, or gallops. PULM: No resp distress. CTAB, no wheezes, rales, or rhonchi. ABD: well-healed scars (from abdominoplasty), soft, NT/ND, no rebound tenderness or guarding, no CVA tenderness. BACK: No TTP of c/t/l-spine. No step-offs or deformities. MSK: No bony deformities. 2+ pulses in all extremities. NEURO: AAOx3. PERRL. CN 2-12 intact. 5/5 strength in all extremities. Sensation to light touch intact in all extremities. No pronator drift. No dysmetria. No dysdiadochokinesia. No abnormal nystagmus. No skew deviation. Normal gait. EXTREMITIES: No cyanosis. No clubbing. No edema. No calf tenderness. PSYCH: Normal mood and thought pattern. SKIN: Warm and slightly diaphoretic. Normal capillary refill. No rashes. No jaundice. ED Treatment Course - LABORATORY CBC & Chemistry Diagram: 02/16/19 15:14 02/16/19 15:15 Medical Decision Making - Medical Decision Making 43yo F hx HTN and abdominoplasty (2018 w/post-op infxn, resolved) presents from home with headache, R eye irritation, light-headedness, and concern for her BP. Hemodynamically stable, neurologically intact. Pt concerned for BP of 184/100, but BP now 164/83 - low concern for hypertensive urgency/emergency; r/o end- organ damage with CBC, CMP, UA. Headache most likely tension or migraine in nature due to consistency with previous headaches, photophobia, and bitemporal pressure type - Reglan, IVF and reassess. Tearing and eye burning raise concern for corneal abrasion or foreign object in eye - evaluate with fluorescein. Also consider glaucoma, temporal arteritis, and entrapment, but very low concern due to lack of blurry vision or visual deficits, EOMI without pain with movement, and lack of pain with palpation of temporal artery. Very low concern for SAH or meningitis due to consistency with prior headaches, lack of sudden onset, lack of fever, supple neck, and lack of neurologic deficits - no further testing indicated. Light-headedness most likely 2/2 headache, but also consider and r/o anemia, infectious etiologies, and ; also give IVF. -Labs: CBC, CMP, UA, Serum -IVF, Reglan -Examine eye for corneal abrasion or foreign objects -Dispo: likely d/c home pending workup and sx improvement 02/16/19 15:[address] Molina, pt states headache started at 2200 last night and is worse than any other headache. Obtain CTH to r/o SAH. 02/16/19 15:46 Ophthalmoscope with blue filter and fluoroscein used to evaluation for corneal abrasion or foreign objects in R eye - no abnormalities seen. 02/16/19 18:31 Labs reviewed. No concerning findings. CTH: per my read, no acute findings. Pending radiologist read. 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 Most recent BP 142/79 Will dc home with supportive treatment. Return precautions given. Pt understands all dc instructions and all questions were answered. *DC/Admit/Observation/Transfer Diagnosis at time of Disposition: Headache - Discharge Dispostion Disposition: HOME Condition at time of disposition: Improved Decision to Admit order: No - Referrals Referrals: Tino Chung [Primary Care Provider] - - Patient Instructions Printed Discharge Instructions: DI for Headache Additional Instructions: You have been seen in the Emergency Department for your headache, eye irritation , and blood pressure. Your blood pressure improved here after your normal medication. Your CT scan, eye exam, and labs show no signs concerning for an emergent condition in your head or eye. Your pain improved with fluids and Reglan, a migraine medication. Your pain is most likely due to a headache or migraine. At this time, it's most important to stay hydrated. If you experience pain, you can take Tylenol or Ibuprofen as directed on the medication bottle, but do not exceed 3g of Ibuprofen or 4g of Tylenol a day. Follow-up with your primary care doctor within 1 week. Return to the ED immediately if you experience pain not controlled by over the counter medications, dizziness, vision changes, severe vomiting, or any other new or worsening symptom. - Post Discharge Activity
[2019-02-16] MEDS ORDERED: TETRACAINE 0.5% HCL 0.6ML DROPPER.BOTTLE OD ONE (14:47)
[2019-02-16] MEDS ORDERED: FLUORESCEIN NA 1 EA STRIP NR ONE (14:47)
[2019-02-16] MEDS ORDERED: SODIUM CHLORIDE 1,000 ML IV STA (14:49)
[2019-02-16] MEDS ORDERED: METOCLOPRAMIDE HCL INJECTION 10 MG/2 ML VIAL IVPB ONE (14:49)
[2019-02-16] MEDS ORDERED: METOCLOPRAMIDE HCL INJECTION 10 MG/2 ML VIAL ONE (15:11)
[2019-02-16] MEDS ORDERED: FLUORESCEIN NA 1 EA STRIP ONE (15:17)
[2019-02-16] MEDS ORDERED: TETRACAINE 0.5% OPHTH SOLN 2 ML BOTTLE ONE (15:17)
[2019-02-16 15:23] LABS: EOS % 4.4 % (0-4.5); HEMATOCRIT 38.3 % (32.4-45.2); HEMOGLOBIN 12.9 GM/dL (10.7-15.3); LYMPH % 28.7 % (8-40); MCH 27.8 pg (25.7-33.7); MCHC 33.8 g/dl (32.0-36.0); MEAN CELL VOLUME 82.3 fl (80-96); MEAN PLT VOLUME 7.8 fl (7.5-11.1); MONO % 8.1 % (3.8-10.2); NEUT % 57.8 % (42.8-82.8); RBC 4.65 M/mm3 (3.60-5.2); RDW 13.9 % (11.6-15.6); WHITE BLOOD COUNT 11.3 K/mm3 (4.0-10.0)
[2019-02-16 15:31] LABS: PLATELET COUNT 301 K/MM3 (134-434)
[2019-02-16 15:52] LABS: ALBUMIN 3.6 g/dl (3.4-5.0); BILIRUBIN,TOTAL 0.4 mg/dL (0.2-1); BLOOD UREA NITROGEN 13.3 mg/dL (7-18); CALCIUM 8.7 mg/dL (8.5-10.1); CREATININE 0.6 mg/dL (0.55-1.3); POTASSIUM 4.4 mmol/L (3.5-5.1); TOT PROT 7.3 g/dl (6.4-8.2)
--- NOTE | 2019-02-16 17:19 | PDOC ---
Documentation entered by Bucky Rodríguez SCRIBE, acting as scribe for Angela Molina MD. Angela Molina MD: This documentation has been prepared by the Marcos castaneda Daniel, SCRIBE, under my direction and personally reviewed by me in its entirety. I confirm that the documentation accurately reflects all work, treatment, procedures, and medical decision making performed by me. Attending Attestation - Resident Resident Name: Shell Goldsmith - [facility] HPI: 02/16/19 14:38 The patient is a 43 year old female with a past medical history of HTN and liposuction with abdominoplasty here today for evaluation of headache and right eye burning. The patient reports that she woke up today with lightheadedness, nausea, right temporal headache (worse than her normal headache, peak severity around 5 AM), and right eye itchiness and burning. She also noted that her blood pressure was elevated this morning. She reports trying to wash her right eye with no relief and states that she is unable to fully open her eye. Patient denies headache, lightheadedness. Denies fever, chills. Denies chest pain. Denies vision changes. Denies vomiting, diarrhea, abdominal pain. Allergies: NKA PCP: Tino Chung - Physicial Exam PE: 02/16/19 15:06 GENERAL: Awake, alert, and fully oriented, in no acute distress. Obese. HEAD: No signs of trauma EYES: PERRLA, EOMI, sclera anicteric, conjunctiva clear ENT: Auricles normal inspection, hearing grossly normal, nares patent, oropharynx clear without exudates. Moist mucosa NECK: Normal ROM, supple, no lymphadenopathy, JVD, or masses LUNGS: Breath sounds equal, clear to auscultation bilaterally. No wheezes, and no crackles HEART: Regular rate and rhythm, normal S1 and S2, no murmurs, rubs or gallops ABDOMEN: Soft, nontender, normoactive bowel sounds. No guarding, no rebound. No masses EXTREMITIES: Normal range of motion, no edema. No clubbing or cyanosis. No cords, erythema, or tenderness NEUROLOGICAL: Cranial nerves II through XII grossly intact. Normal speech, normal gait SKIN: Warm, Dry, normal turgor, no rashes or lesions noted. - Medical Decision Making 02/16/19 17:11 Pt presents to the ED complaining of band like frontal headache that awoke her from sleep at 5 am. Differential includes migraine, less likely subarachnoid, unlikely mass, unlikely menigitis. Will give pain control, check labs and CT head, likely discharge home if pain controlled and symptoms improved.
[2019-02-16 17:46] LABS: URINE APPEARANCE CLEAR; URINE BILIRUBIN NEGATIVE (NEGATIVE); URINE COLOR YELLOW; URINE GLUCOSE (UA) NEGATIVE (NEGATIVE); URINE KETONE NEGATIVE (NEGATIVE); URINE LEUK ESTERASE NEGATIVE (NEGATIVE); URINE NITRITE NEGATIVE (NEGATIVE); URINE PROTEIN NEGATIVE (NEGATIVE); URINE UROBILINOGEN 0.2 mg/dL (0.2-1.0)
[2019-02-16 19:11] VITALS: BP 142/79; PULSE 82; TEMP 98.5
== END 2019-02-16 19:14 | disposition home or self-care (01) ==
LOC: JER 13:11
DX: R51 Headache (principal)
CPT/HCPCS: 36415; 70450-TC; 80053; 81003; 84703; 85025; 87086; 99282-25; J7030

== ENCOUNTER 2022-08-16 07:27 | Day surgery (SDC) | payer OTHER ==
[2022-08-11 10:26] VITALS: BMI 49.0
[2022-08-16] MEDS ORDERED: PROPOFOL 120 ML ONE (07:58)
[2022-08-16] MEDS ORDERED: LIDOCAINE HCL/PF 2% SDV 5ML VIAL ONE (07:58)
[2022-08-16 08:55] VITALS: RESP 19; TEMP 98
[2022-08-16 09:01] VITALS: BP 110/60; PULSE 74
== END 2022-08-16 09:25 | disposition home or self-care (01) ==
LOC: FASU-ENDO 07:27
PROVIDERS: ATTEND Internal Medicine Gastroenterology
PROC: 0DJD8ZZ Inspection of Lower Intestinal Tract, Via Natural or Artificial Opening Endoscopic (ICD-10-PCS; principal; 2022-08-16 08:18)
DX: Z12.11 Encounter for screening for malignant neoplasm of colon (principal)
CPT/HCPCS: 81025